=== PATIENT | male | born 1940 | race Hispanic/Latino ===

== ENCOUNTER → 2018-05-06 | Day surgery (SDC) | payer MEDICARE ==
--- NOTE | 2018-05-02 16:16 | Diagnostic Imaging Report ---
EXAMINATION: CHEST 2 VIEWS INDICATION: Preop, foot surgery COMPARISON: None FINDINGS: PA and lateral views TUBES and LINES: Shunt tubing extends across the medial right chest from the lower right neck into the upper abdomen LUNGS: Lungs are well inflated. There is no evidence of pneumonia or pulmonary edema. PLEURA: No pleural effusion or pneumothorax. HEART AND MEDIASTINUM: The heart is top normal in size. BONES AND SOFT TISSUES: No focal osseous lesions. Bridging osteophytes in the lower thoracic spine are suggestive of DISH. There are degenerative changes of the shoulders. Soft tissues are unremarkable. UPPER ABDOMEN: No free air under the diaphragm. IMPRESSION: 1. No acute cardiopulmonary process. 2. Shunt tubing suggestive of ventriculoperitoneal shunt. 3. Bridging osteophytes in the thoracic spine suggestive of DISH. Signed by: Dr. Bushra Wyatt MD on 05/02/2018 4:12 PM
[2018-05-02 16:24] LABS: BASOPHILS # (AUTO) 0.1 (0.0-0.1); BASOPHILS % 0.6 % (0.0-1.0); EOSINOPHILS # (AUTO) 0.4 (0.0-0.4); EOSINOPHILS % 3.4 % (0.0-6.0); HEMATOCRIT 36.2 % (38.2-49.6); HEMOGLOBIN 12.2 g/dL (14.0-18.0); LYMPHOCYTES # (AUTO) 1.6 (1.0-3.2); LYMPHOCYTES % 13.1 % (18.0-39.1); MEAN CORPUSCULAR HEMOGLOBIN 30.1 pg (28-32); MEAN CORPUSCULAR HGB CONC 33.7 g/dL (31-35); MEAN CORPUSCULAR VOLUME 89.4 fL (81-99); MONOCYTES # (AUTO) 0.8 (0.2-0.8); MONOCYTES % 6.7 % (4.4-11.3); NEUTROPHILS # (AUTO) 9.2 (2.1-6.9); NEUTROPHILS % 75.8 % (38.7-80.0); PLATELET COUNT 373 x10e3/uL (140-360); RED BLOOD COUNT 4.05 x10e6/uL (4.3-5.7); RED CELL DISTRIBUTION WIDTH 12.4 % (11.7-14.4)
[2018-05-02 16:41] LABS: ANION GAP 14.8 mmol/L (8-16); CALCIUM 9.4 mg/dL (8.4-10.2); CREATININE, SERUM 1.34 mg/dL (0.72-1.25); POTASSIUM 4.8 mmol/L (3.5-5.1)
[~2018-05-06] MED LIST: ALFUZOSIN HCL10 MG PO; ASPIR 8181 MG PO; BACITRACIN 50,000 UNIT VIAL ONE; BETIMOL5 M1 OP; BUPIVACAINE HCL 0.5% INJ 30 ML VIAL INJ ONE; CEFAZOLIN SOD 1 GM/NS 50ML 50 ML IV ONE; CENTRUM SILVER1 EAC3 PO; CINNAMON500 MG PO; FENTANYL CITRATE/PF 100MCG/2 ML INJ ONE; FINASTERIDE5 MG PO; FISH OIL 1,0001 EAC2 PO; GARLIC1000 MG PO; GLIPIZIDE ER5 MG PO; LEVOTHYROXINE50 MCG PO; LIDOCAINE HCL 2% LOCAL INJ 5 ML SDV VIAL INJ ONE; PLAVIX75 MG PO; PROPOFOL IV EMULSION 10 MG/ML 20 ML VIAL ONE; SUPER B COMPLE1 EACH PO; VIT B12 PO; VIT D3 PO; VIT E PO; ZINC SULFATE220 MG PO; [UNRECOGNIZED DRUG - OTHER] PO
--- OUTSIDE RECORDS SUMMARY | 2018-05-06 08:29 | XMS REPORT ---
[facility] Address Unknown Phone Unavailable Care Team Providers Care Supervisor [employer] Name Role Phone Maria A JORDAN Unavailable Unavailable Payers Payer Name Policy Type Policy Number Effective Date Expiration Date Problems This patient has no known problems. Allergies, Adverse Reactions, Alerts Allergy Name Allergy Type Status Severity Reaction(s) Onset Date Inactive Date Treating Clinician Comments metformin DA Active 2017-05-31 00:00:00 glimepiride DA Active SV 2017-05-31 00:00:00 Medications This patient has no known medications. Results Test Description Test Time Test Comments Text Results Atomic Results Result Comments CHEST 2 VIEWS 2018-05-02 16:11:00 [place] [id number] Patient Name: JENNIFER CUMMINS MR #: [id number] : 1940 Age/Sex: 77/M Req #: [id number] Adm Physician: Ordered by: Maria A JORDAN DPM Report #: [id number] Location: OR Room/Bed: Procedure: [id number] DX/CHEST 2 VIEWS Exam Date: Exam Time: REPORT STATUS: Signed EXAMINATION: CHEST 2 VIEWS INDICATION: Preop, foot surgery COMPARISON: None FINDINGS: PA and lateral views TUBES and LINES: Shunt tubing extends across the medial right chest from the lower right neck into the upper abdomen LUNGS: Lungs are well inflated. There is no evidence of pneumonia or pulmonary edema. PLEURA: No pleural effusion or pneumothorax. HEART AND MEDIASTINUM: The heart is top normal in size. BONES AND SOFT TISSUES: No focal osseous lesions. Bridging osteophytes in the lower thoracic spine are suggestive of DISH. There are degenerative changes of the shoulders. Soft tissues are unremarkable. UPPER ABDOMEN: No free air under the diaphragm. IMPRESSION: 1. No acute cardiopulmonary process. 2. Shunt tubing suggestive of ventriculoperitoneal shunt. 3. Bridging osteophytes in the thoracic spine suggestive of DISH. Signed by: Dr. Jacinto Wyatt MD on 05/02/2018 4:12 PM Dictated By: JACINTO WYATT MD [id number] Transcribed By: ISAURO on 05/02/18 1612 COPY TO: Maria A JORDAN DPM
[2018-05-06 09:56] LABS: INR 0.9
[2018-05-06 10:07] LABS: PARTIAL THROMBOPLASTIN TIME 35.5 seconds (23.8-35.5)
[2018-05-06 12:00] VITALS: BP 133/86
--- NOTE | 2018-06-18 14:41 | Operative Report ---
DATE OF PROCEDURE: May 06, 2018 PREOPERATIVE DIAGNOSES 1. Abscess and cellulitis, right 1st toe. 2. Osteomyelitis, right 1st toe. POSTOPERATIVE DIAGNOSES 1. Abscess and cellulitis, right 1st toe. 2. Osteomyelitis, right 1st toe. OPERATIVE PROCEDURE: Amputation of the right 1st toe and distal one-third of the metatarsal head. The patient was placed on the OR table in the supine position. The right lower extremity was prepped and draped in the usual manner. A general anesthetic was administered and hemostasis accomplished using an Esmarch bandage. An incision was started on the dorsal aspect of the 1st metatarsophalangeal joint. It extended from the distal one-third of the metatarsal to the midshaft of the proximal phalanx. The incision was then lengthened both medially and laterally to [place] under the toe. The soft tissue was then dissected away from the base of the toe. The metatarsophalangeal joint was disarticulated and the toe was removed in total. It was noted that the metatarsal head was also affected. It had the grayish dark color of an infected bone. At this time, utilizing a power saw, the distal one-third of the metatarsal was removed. The remaining shaft was smoothed with a rongeur and also a hand rasp. At this time, the wound was flushed with a Pulsavac with also Bacitracin antibiotic. The dorsal and plantar flaps were then remodeled for closure. The wound was then closed with 3-0 nylon. Following the procedure, 10 mL of 0.5 Marcaine were injected. A sterile compression bandage was applied. At this time, the pneumatic cuff was released and a reflex hyperemia was observed to the remaining digits. Patient tolerated the procedure and anesthesia well, and left the OR to recovery in good condition with vital signs stable. Job#: [id number] RI
== END | disposition home or self-care (01) ==
LOC: OR 08:27
PROVIDERS: ATTEND Podiatrist Foot & Ankle Surgery
DX: M86.171 Other acute osteomyelitis, right ankle and foot (principal); M86.671 Other chronic osteomyelitis, right ankle and foot; L02.611 Cutaneous abscess of right foot; L03.031 Cellulitis of right toe; I70.261 Atherosclerosis of native arteries of extremities with gangrene, right leg; F03.90 Unspecified dementia, unspecified severity, without behavioral disturbance, psychotic disturbance, mood disturbance, and anxiety; H91.90 Unspecified hearing loss, unspecified ear; I49.3 Ventricular premature depolarization; E78.5 Hyperlipidemia, unspecified; E11.9 Type 2 diabetes mellitus without complications; H53.489 Generalized contraction of visual field, unspecified eye; N40.0 Benign prostatic hyperplasia without lower urinary tract symptoms; F17.210 Nicotine dependence, cigarettes, uncomplicated; Z01.810 Encounter for preprocedural cardiovascular examination; Z01.812 Encounter for preprocedural laboratory examination; Z01.818 Encounter for other preprocedural examination; Z88.8 Allergy status to other drugs, medicaments and biological substances; Z79.02 Long term (current) use of antithrombotics/antiplatelets; Z98.2 Presence of cerebrospinal fluid drainage device; Z86.73 Personal history of transient ischemic attack (TIA), and cerebral infarction without residual deficits
CPT/HCPCS: 28810; 36415 ×2; 71046; 80048; 82948; 85025; 85610; 85730; 88305; 88311; 93005; J0690; J2001; J2704; 88304; 88307

== ENCOUNTER 2018-05-10 16:12 | Inpatient (IN) | payer MEDICARE ==
[~2018-05-10] VITALS: Ht 177.8 cm; Wt 84.0 kg
[~2018-05-10 16:12] MED LIST changes: -BACITRACIN 50,000 UNIT VIAL ONE; -BUPIVACAINE HCL 0.5% INJ 30 ML VIAL INJ ONE; -CEFAZOLIN SOD 1 GM/NS 50ML 50 ML IV ONE; -FENTANYL CITRATE/PF 100MCG/2 ML INJ ONE; -LIDOCAINE HCL 2% LOCAL INJ 5 ML SDV VIAL INJ ONE; -PROPOFOL IV EMULSION 10 MG/ML 20 ML VIAL ONE
[2018-05-10 19:51] LABS: BASOPHILS # (AUTO) 0.1 (0.0-0.1); BASOPHILS % 0.3 % (0.0-1.0); EOSINOPHILS % 0.2 % (0.0-6.0); HEMATOCRIT 31.9 % (38.2-49.6); HEMOGLOBIN 10.8 g/dL (14.0-18.0); LYMPHOCYTES # (AUTO) 0.6 (1.0-3.2); LYMPHOCYTES % 3.4 % (18.0-39.1); MEAN CORPUSCULAR HEMOGLOBIN 29.3 pg (28-32); MEAN CORPUSCULAR HGB CONC 33.9 g/dL (31-35); MEAN CORPUSCULAR VOLUME 86.4 fL (81-99); MONOCYTES % 5.9 % (4.4-11.3); NEUTROPHILS # (AUTO) 15.6 (2.1-6.9); NEUTROPHILS % 89.8 % (38.7-80.0); PLATELET COUNT 387 x10e3/uL (140-360); RED BLOOD COUNT 3.69 x10e6/uL (4.3-5.7); RED CELL DISTRIBUTION WIDTH 12.3 % (11.7-14.4)
[2018-05-10 20:00] LABS: INR 1.01; PROTHROMBIN TIME 14.2 seconds (11.9-14.5)
[2018-05-10 20:01] LABS: PARTIAL THROMBOPLASTIN TIME 49.2 seconds (23.8-35.5)
[2018-05-10 20:12] LABS: ANION GAP 13.9 mmol/L (8-16); CREATININE, SERUM 1.49 mg/dL (0.72-1.25); POTASSIUM 4.9 mmol/L (3.5-5.1)
[2018-05-10 20:13] LABS: ALBUMIN 2.2 g/dL (3.5-5.0); ALBUMIN/GLOBULIN RATIO 0.5 (0.8-2.0); CALCIUM 9.1 mg/dL (8.4-10.2)
--- NOTE | 2018-05-10 20:19 | Diagnostic Imaging Report ---
FOOT RIGHT COMPLETE - 3 views HISTORY: Pain COMPARISON: None available. FINDINGS: Status post amputation of the right great toe at level of the distal metatarsal bone. There is soft tissue swelling and emphysema at the stump. Tiny erosive changes at the tip of the first metatarsal stump suspected. Calcaneal enthesophytes. Tibiotalar arthropathy. IMPRESSION: Status post amputation of the right great toe at level of the distal metatarsal bone. There is soft tissue swelling and emphysema at the stump. Tiny erosive changes at the amputated tip of the first metatarsal is suspected. Foot MRI can be obtained for further evaluation. Signed by: Dr. Aramis Foote MD on 05/10/2018 8:16 PM
--- NOTE | 2018-05-10 20:32 | Diagnostic Imaging Report ---
EXAMINATION: CHEST SINGLE (PORTABLE) INDICATION: ^ADMISSION ^[id number] ^1945 COMPARISON: 05/02/2018 FINDINGS: AP view TUBES and LINES: Partially visualized right BROADCAST OPERATIONS DIRECTOR shunt is again seen. LUNGS: Lungs are well inflated. Central peribronchovascular thickening/cuffing. PLEURA: No pleural effusion or pneumothorax. HEART AND MEDIASTINUM: The cardiomediastinal silhouette is unremarkable. BONES AND SOFT TISSUES: No acute osseous lesion. Soft tissues are unremarkable. UPPER ABDOMEN: No free air under the diaphragm. IMPRESSION: Unchanged central peribronchovascular thickening/cuffing. No definite focal consolidation. Signed by: Dr. Aramis Foote MD on 05/10/2018 8:28 PM
[2018-05-10] MEDS ORDERED: DEXTROSE 50% SYRINGE 50 ML IV PRN (21:00)
[2018-05-10] MEDS ORDERED: MORPHINE SULFATE 2 MG/ML SYR 1ML IV PRN (21:00)
[2018-05-10] MEDS ORDERED: MORPHINE SULFATE INJ 4 MG/ML INJ 1ML IV PRN (21:15)
[2018-05-10] MEDS: PIPER-TAZ 3.375 GM 50 ML IV SCH (21:27)
[2018-05-10] MEDS: SODIUM CHLORIDE 0.9% 1000ML 1,000 ML IV SCH (21:27)
[2018-05-10] MEDS: VANCOMYCIN 1GM/NS 250 ML 250 ML IV SCH (22:54)
[2018-05-10] MEDS: INSULIN REGULAR, HUMAN 100 UNIT/1 ML 3ML VIAL SQ SCH (22:55)
--- NOTE | 2018-05-11 | NUR ---
SANDWICH GIVEN TO PT.
[2018-05-11] MEDS: ACETAMINOPHEN 325 MG TAB PO PRN ×2 (00:30→23:49)
--- NOTE | 2018-05-11 02:40 | NUR ---
TRANSFERED PT TO HOSPITAL BED.
[2018-05-11] MEDS: IBUPROFEN 600 MG TAB PO PRN (02:43)
[2018-05-11] MEDS: PIPER-TAZ 3.375 GM 50 ML IV SCH ×3 (06:17→22:00)
[2018-05-11 06:40] LABS: BASOPHILS % 0.3 % (0.0-1.0); EOSINOPHILS % 0.3 % (0.0-6.0); HEMATOCRIT 27.9 % (38.2-49.6); HEMOGLOBIN 9.6 g/dL (14.0-18.0); LYMPHOCYTES # (AUTO) 0.6 (1.0-3.2); LYMPHOCYTES % 5.4 % (18.0-39.1); MEAN CORPUSCULAR HEMOGLOBIN 29.9 pg (28-32); MEAN CORPUSCULAR HGB CONC 34.4 g/dL (31-35); MEAN CORPUSCULAR VOLUME 86.9 fL (81-99); MONOCYTES # (AUTO) 0.7 (0.2-0.8); MONOCYTES % 6.1 % (4.4-11.3); NEUTROPHILS # (AUTO) 10.5 (2.1-6.9); NEUTROPHILS % 87.6 % (38.7-80.0); PLATELET COUNT 305 x10e3/uL (140-360); RED BLOOD COUNT 3.21 x10e6/uL (4.3-5.7); RED CELL DISTRIBUTION WIDTH 12.4 % (11.7-14.4)
--- NOTE | 2018-05-11 07:06 | NUR ---
Walking rounds with MARTITA Friedman day shift nurse.
[2018-05-11 07:07] LABS: ALBUMIN 1.8 g/dL (3.5-5.0); ALBUMIN/GLOBULIN RATIO 0.5 (0.8-2.0); ANION GAP 12.1 mmol/L (8-16); CALCIUM 8.4 mg/dL (8.4-10.2); CREATININE, SERUM 1.52 mg/dL (0.72-1.25); POTASSIUM 4.1 mmol/L (3.5-5.1)
[2018-05-11] MEDS: INSULIN REGULAR, HUMAN 100 UNIT/1 ML 3ML VIAL SQ SCH ×4 (08:05→21:00)
--- NOTE | 2018-05-11 10:05 | NUR ---
Dr. Mcclure rounding at this time.
--- NOTE | 2018-05-11 10:20 | NUR ---
Dr. Mcclure here rounding at this time, requesting for pt to be tx'd to [facility]. States pt was to go to [facility] for admission for IV abx for foot wound & has scheduled cardiac procedure on Sunday with Dr. Sandoval. Pt, family, & MD requesting pt to be transferred at this time.
[2018-05-11] MEDS: SODIUM CHLORIDE 0.9% 1000ML 1,000 ML IV SCH ×2 (10:36→17:51)
[2018-05-11] MEDS: VANCOMYCIN 1GM/NS 250 ML 250 ML IV SCH ×2 (10:36→20:38)
--- NOTE | 2018-05-11 13:04 | NUR ---
Per [facility], [facility] declined transfer at this time d/t saturation.
--- NOTE | 2018-05-11 14:24 | NUR ---
Report is called to Coreen ANDERS
--- NOTE | 2018-05-11 15:02 | History and Physical ---
CHIEF COMPLAINT: Gangrenous toes likely needing amputation. HISTORY OF PRESENT ILLNESS: This is a 77-year-old male with multiple comorbidities of known hypertension and type 2 diabetes who was sent in by permanent waver for further management and care, requiring angiogram and likely amputation and debridement of his foot. While here, the patient was doing well, no other complaints. He is tolerating diet well. Denies any chest pain, palpitations, nausea, vomiting. Patient was seen and evaluated at bedside on the medical floor, currently doing well, no other issues. REVIEW OF SYSTEMS: Pertinent positives: Gangrenous toes due to severe PAD and diabetes mellitus. Pertinent negative: Denies any chest pain, palpitation, nausea, vomiting, diarrhea, dysuria, hematuria, frequency, urgency, lightheadedness, dizziness, abdominal pain, headache, shortness of breath, cough, congestion, fever or any other complaints. The rest of the 14-point review of systems have been reviewed with the patient and are negative. ALLERGIES: TO LOPERAMIDE AND METFORMIN. HOME MEDICATIONS: Aspirin 81 mg daily, Plavix 75 mg daily, finasteride 5 mg daily, glipizide 5 mg t.i.d., levothyroxine 50 mcg daily, zinc ox, zinc sulfate 50 mg daily. PAST MEDICAL HISTORY: Type 2 diabetes, hypertension, peripheral neuropathy, diabetic foot ulcers. SURGICAL HISTORY: Multiple debridement of the diabetic foot ulcers. FAMILY HISTORY: Hypertension and diabetes. SOCIAL HISTORY: No drugs. No alcohol. Does not smoke. Lives with spouse. VITAL SIGNS: Temperature is 98.2, pulse 67, respiratory rate is 18, blood pressure 149/60, pulse ox 98% on room air. LAB FINDINGS: Show white count is 11.9, hemoglobin is 9.6, hematocrit is 28, and platelets are 305. Coagulation: PT 14, INR 1, PTT 49. Chemistries: Sodium 128, potassium is 4.1, bicarb is 19, anion gap of 12, BUN is 29, creatinine is 1.5, glucose was 52 with 112. LFTs are normal. Albumin is 1.8. MICROBIOLOGY: Blood cultures are pending. IMAGING STUDIES: Foot x-ray, status post amputation of the right great toe at the level of the distal metatarsal bone. There is soft tissue swelling and emphysema at the stump. Tiny erosions, changes amputation in the first metatarsal. Chest x-ray otherwise negative. PHYSICAL EXAMINATION GENERAL: Not in acute distress. Alert and oriented x3. Cooperative on examination. HEENT: Head is normocephalic and atraumatic. Eyes: Pupils equal, round and reactive to light bilaterally. Extraocular movements intact bilaterally. NECK: Supple. Good range of motion. Throat with no evidence of any erythema or exudates in the posterior pharynx. Has poor dentition. MUSCULOSKELETAL: Strength is 5/5 throughout. No evidence of any muscle deficit on examination. No weakness appreciated. NEUROLOGICAL: Cranial nerves II through XII grossly intact. No evidence of any neurological deficits on exam. SKIN: Intact. Warm to touch. Good cap refill. PSYCHIATRIC: Normal affect and mood. EXTREMITIES: No edema. Good range of motion throughout. IMPRESSION 1. Right diabetic foot ulcers with gangrene concerning for underlying debridement needed. 2. Severe peripheral arterial disease. 3. Type 2 diabetes. 4. Medically debilitated. 5. Generalized weakness. PLAN: At this time, podiatry and vascular surgery were consulted. Arterial Doppler has been ordered. We will need angiogram of the lower extremities. He is on IV vancomycin and Zosyn. We will get ID consultation as well to evaluate and monitor closely. Resume same home medications with no changes. Lovenox for DVT prophylaxis. Pain control as well. We will likely need debridement or amputation later next week. Job#: [id number] ELINOR
[2018-05-11] MEDS: GLIPIZIDE 5 MG TAB ER PO SCH (17:00)
[2018-05-11] MEDS: ENOXAPARIN SOD INJ 40 MG/0.4 ML SYR SC SCH (17:51)
--- NOTE | 2018-05-11 18:03 | NUR ---
PAINTER HAND reported BP of 204/80 upon getting VS when patient arrived to the floor from the ER. Manual BP taken twice, both readings of 210/90. Notified Dr. Solis, new orders received.
[2018-05-11 18:13] VITALS: BP 204/80
[2018-05-11 18:18] VITALS: BP 204/80
[2018-05-11] MEDS: NIFEDIPINE CR 30 MG TAB PO SCH (18:20)
[2018-05-11] MEDS: HYDRALAZINE HCL 20 MG/ML VIAL IV PRN (18:20)
--- NOTE | 2018-05-11 18:29 | NUR ---
Patient is diaphoretic and is short of breath, he denies any chest pain. Blood sugar is 146. BP 200/80. Paged Dr. Solis, new orders received.
[2018-05-11] MEDS ORDERED: ALBUTEROL/IPRATROPIUM 3 ML NEB NEB PRN (18:45)
[2018-05-11] MEDS ORDERED: FUROSEMIDE INJ 10 MG/ML 4 ML VIAL IV ONE (19:00)
--- NOTE | 2018-05-11 19:25 | NUR ---
Patent received lying in bed. at bedside. AAO x 3. Patient complained about anxiety. Denies SOB or chest pain. Will continue to monitor.
--- NOTE | 2018-05-11 19:45 | NUR ---
Patient complained of anxiety and stated he smokes a pack and a half of cigarettes per day. Dr. Amador Solis notified. New order received.
[2018-05-11 20:00] VITALS: BP 178/68
--- NOTE | 2018-05-11 20:07 | Diagnostic Imaging Report ---
EXAMINATION: CHEST SINGLE (PORTABLE) INDICATION: Shortness of breath. COMPARISON: Chest x-ray 05/10/2018 FINDINGS: AP view TUBES and LINES: Incompletely visualized INSTRUCTIONAL COACH shunt overlying the right neck and chest. LUNGS: Lungs are well inflated. Stable pulmonary venous congestion. No consolidations. PLEURA: No pleural effusion or pneumothorax. HEART AND MEDIASTINUM: Borderline enlargement of cardiac silhouette. BONES AND SOFT TISSUES: No acute osseous lesion. Soft tissues are unremarkable. UPPER ABDOMEN: No free air under the diaphragm. IMPRESSION: Stable pulmonary venous congestion. No consolidations. Signed by: DR. Donavan Raya MD on 05/11/2018 8:04 PM
--- NOTE | 2018-05-11 20:15 | NUR ---
Patient's vital signs re-checked---BP(207/89); HR (107). Dr. Clifton Link notified. New orders received.
[2018-05-11] MEDS ORDERED: LABETALOL HCL 5 MG/ML 20ML VIAL IV PRN (20:30)
[2018-05-11 21:00] VITALS: BP 178/68
[2018-05-11] MEDS: NICOTINE 21 MG/EA PATCH TOP SCH (21:00)
--- NOTE | 2018-05-11 22:30 | NUR ---
Blood specimen sent to lab for BMP.
[2018-05-11] MEDS: ONDANSETRON HCL INJ 2MG/ML 2ML 2 MG/ML VIAL IV PRN (23:00)
[2018-05-11 23:12] LABS: CALCIUM 8.7 mg/dL (8.4-10.2); CREATININE, SERUM 1.54 mg/dL (0.72-1.25)
[2018-05-12] VITALS (7 sets, daily range): BP systolic 130–168; BP diastolic 63–72
[2018-05-12] MEDS: PIPER-TAZ 3.375 GM 50 ML IV SCH ×3 (06:00→22:28)
[2018-05-12] MEDS: LEVOTHYROXINE SODIUM 50 MCG TAB PO SCH (06:00)
--- NOTE | 2018-05-12 07:13 | NUR ---
Shift report given to oncoming nurse. Patient in stable condition.
[2018-05-12] MEDS: INSULIN REGULAR, HUMAN 100 UNIT/1 ML 3ML VIAL SQ SCH ×4 (07:30→21:00)
[2018-05-12] MEDS: FINASTERIDE 5 MG TAB PO SCH (09:00)
[2018-05-12] MEDS ORDERED: ZINC SULFATE 220 MG CAP PO SCH (09:00)
[2018-05-12] MEDS: ASPIRIN 81 MG CHEW TAB PO SCH (09:15)
[2018-05-12] MEDS: CLOPIDOGREL BISULFATE 75 MG TAB PO SCH (09:15)
[2018-05-12] MEDS: VANCOMYCIN 1GM/NS 250 ML 250 ML IV SCH ×2 (09:15→21:43)
[2018-05-12] MEDS: NIFEDIPINE CR 30 MG TAB PO SCH (09:15)
[2018-05-12] MEDS: GLIPIZIDE 5 MG TAB ER PO SCH ×2 (09:15→17:40)
--- NOTE | 2018-05-12 11:56 | Consultation ---
DATE OF CONSULTATION: May 12, 2018 HISTORY OF PRESENTING ILLNESS: This is a 77-year-old male with past medical history of type 2 diabetes, hypertension, peripheral neuropathy, peripheral vascular disease, who recently underwent an angioplasty as well as a right partial first ray amputation within the last week. Patient is well known to the podiatry service. He was seen in the office yesterday with a worsening infection and necrotic gangrenous changes to the amputation site of the right foot. He was sent to see his frame stripper and crusher and be admitted to the hospital for IV antibiotics and possible further angiogram with intervention. The patient had his previous angiogram and amputation at [facility] within the past week and was instructed to be admitted there; however, showed up in the emergency room here, was requested to transfer; however, was denied. Patient and patient's appear frustrated with the situation. Majority of the history was taken from the patient's . He currently denies chest pain. He did have vomiting yesterday related to fever overnight. No other pedal complaints. PAST MEDICAL HISTORY 1. Type 2 diabetes. 2. Peripheral neuropathy. 3. Hypertension. 4. Peripheral vascular disease. ALLERGIES: LOPERAMIDE AND METFORMIN. PAST SURGICAL HISTORY: Right foot partial amputation, left foot partial amputation. FAMILY HISTORY: Hypertension and diabetes. SOCIAL HISTORY: Denies smoking. Denies drinking. Denies any illicit drug usage. PHYSICAL EXAMINATION GENERAL: Not in acute distress, cooperative on examination, alert and oriented x3. VITAL SIGNS: Today temperature 97.8, heart rate 77, respiratory rate 19, blood pressure 168/72, pulse ox 97% on room air. T-max overnight was 101.4. PROBLEM-FOCUSED LOWER EXTREMITY PHYSICAL EXAM VASCULAR: Dorsalis pedis and posterior tibial pulses are nonpalpable. Capillary refill time is delayed to all digits of the right foot. Foot is cool to the touch. Necrotic tissue is noted to the entirety of the amputation site extending proximal to the level of the base of the first metatarsal. NEUROLOGIC: Sensation is absent to light touch bilateral. MUSCULOSKELETAL: Partial first ray amputation to the right foot. Hallux and 2nd digit amputation to the left foot. DERMATOLOGICAL: Necrotic eschar noted to the entirety of the amputation site with a nonhealing wound present. The dehiscence extends proximally to the base of the first metatarsal. Periwound erythema and edema is noted. No active drainage is noted. The wound appears macerated. No bone is exposed at this time. LABS: White blood cell count 11.9 down from 17.3, hemoglobin 9.6, hematocrit 27.9, platelet count 305. Neutrophil percentage is 87.6. Sed rate is 116. Sodium 127, potassium 4.0, chloride 96, CO2 of 20, BUN 26, creatinine 1.54, glucose 164. IMAGING: Three views were taken of the patient's right foot, status post amputation at the right great toe level of distal metatarsal bone. Soft tissue is showing empyema at the stump site, erosive changes at the amputated tip of the first metatarsal is suspected. MICROBIOLOGY: Growth detected. Blood culture, few gram negative bacilli. Culture is pending. ASSESSMENT 1. Status post right foot partial first ray amputation with necrotic wound, dehiscence, and nonhealing wound. 2. Peripheral vascular disease. 3. Type 2 diabetes with peripheral neuropathy. PLAN: Patient was seen and evaluated. Discussed the condition, x-rays, labs with patient in detail. Dry sterile dressing change was performed with Betadine in wet-to-dry fashion. Discussed with patient that a attempt to transfer to [facility] was made; however, was denied. The patient cannot be discharged and cannot have his scheduled angiogram tomorrow as the patient has a positive blood culture. We will recommend consulting in-house cardiology team for further vascular recommendations and intervention if possible. Continue IV antibiotics. Blood culture sensitivities are pending. Discussed with patient at length that the next level of amputation would be a transmetatarsal amputation, but based on the current necrotic wound healing, I am not optimistic about a transmetatarsal wound healing. I also discussed the [id number] amputation with patient in detail. The patient and patient's understand. Podiatry service will continue to monitor him as an inpatient. Job#: [id number] SANDHYA
[2018-05-12] MEDS ORDERED: FUROSEMIDE INJ 10 MG/ML 4 ML VIAL IV ONE (13:00)
[2018-05-12 13:25] LABS: ANION GAP 11.6 mmol/L (8-16); CREATININE, SERUM 1.38 mg/dL (0.72-1.25); POTASSIUM 3.6 mmol/L (3.5-5.1)
--- NOTE | 2018-05-12 13:49 | Progress Note ---
DATE: May 12, 2018 MEDICINE PROGRESS NOTE SUBJECTIVE: Patient decided to go ahead and stay here instead of being transferred to [place]. We will go ahead and consult with appropriate consultants. He is otherwise doing well. Last night, he was short of breath with chest x-ray consistent with pulmonary edema. Lasix was given. Now, he is doing better with no oxygen. He is currently getting a right lower extremity arterial Doppler. OBJECTIVE: VITAL SIGNS: Temperature is 97.8, pulse 77, respiratory rate is 19, blood pressure 168/72. He is satting 97% on room air. GENERAL: In no acute distress. Alert and oriented x3. Cooperative on examination. HEENT: Head is normocephalic, atraumatic. Eyes; pupils equal, round, and reactive to light bilaterally. Extraocular movements intact bilaterally. NECK: Supple with good range of motion. Throat with no evidence of any erythema or exudates in the posterior pharynx. Has poor dentition. PULMONARY: Clear to auscultation bilaterally. No wheezing. No rales. No rhonchi. No crackles appreciated. CARDIOVASCULAR: Positive S1 and S2. No murmurs, rubs, or gallops appreciated. ABDOMEN: Soft, nondistended, nontender to palpation. Bowel sounds present. MUSCULOSKELETAL: Strength is 5/5 throughout. No evidence of any muscle deficit on examination. No weakness appreciated. NEUROLOGICAL: Cranial nerves II through XII grossly intact. No evidence of any neurological deficits on exam. SKIN: Intact. Warm to touch. Good cap refill. PSYCHIATRIC: Normal affect and mood. EXTREMITIES: No edema. Good range of motion throughout. Right foot shows concerning for underlying gangrene. LAB FINDINGS: Show white count of 11.9, hemoglobin 9.6, hematocrit is 27.9, platelets of 305. His sodium 127, potassium 4, chloride 96, bicarb 20, anion gap of 50, BUN 26, creatinine 1.54, glucose is 164, calcium is 8.7. MICROBIOLOGY: Blood culture one of two was positive pending final growth. IMAGING STUDIES: Chest x-ray yesterday showed pulmonary venous congestion is stable, much improved. IMPRESSION 1. Right diabetic foot ulcer with underlying gangrene concerning for amputation needed. 2. Severe peripheral arterial disease. 3. Uncontrolled type 2 diabetes. 4. Medically debilitated. 5. Generalized weakness. 6. Respiratory distress secondary to pulmonary edema, now improved. PLAN: At this time, cardiology has been consulted to perform an angiogram of the right lower extremity. Arterial Doppler has been ordered as well. I discussed this case with podiatry. At this time, he is awaiting for possibly angiogram some time this week to further evaluate and manage. The patient will likely need a BKA as it seems to be very nonhealing in nature. He did develop one of two blood cultures on which I will go ahead and get ID consultation. He is on IV vancomycin and Zosyn for now. We are going to repeat blood cultures x2 as well as labs, CBC, and BMP. He is breathing much better now. I will go ahead and give him some Lasix 40 mg IV x1 again. Continue with Lovenox for DVT prophylaxis. He will likely need debridement sometime next week or possibly amputation. Otherwise, we will also get a BMP right now as well. Job#: [id number]
[2018-05-12] MEDS: ENOXAPARIN SOD INJ 40 MG/0.4 ML SYR SC SCH (17:40)
--- NOTE | 2018-05-12 19:06 | Consultation ---
DATE OF CONSULTATION: May 12, 2018 CARDIOLOGY CONSULTATION REQUESTING PHYSICIAN: Dr. Solis. REASON FOR CONSULTATION: Peripheral arterial disease. HISTORY OF PRESENT ILLNESS: This is a 77-year-old male with history of hypertension, and diabetes mellitus who was sent to the hospital for worsening of his right lower extremity surgical site. The patient was recently admitted at [facility] where he underwent a right partial first ray amputation as well as an angioplasty. He was seen in the stamp pad finisher office the day before admission with worsening infection and necrotic changes to the amputation site. He was instructed to present to the hospital for IV antibiotics and further intervention. However, he inadvertently presented to [facility] instead. Transfer was requested; however, due to lack of bed availability, he was admitted here instead. He was subsequently found to have gram-negative daysi bacteremia for which he has been placed on antibiotic therapy. Cardiology is consulted to evaluate patient's peripheral arterial disease. He denies chest pain, shortness of breath, palpitations. REVIEW OF SYSTEMS: Negative except as per HPI. PAST MEDICAL HISTORY 1. Hypertension. 2. Diabetes mellitus. 3. Peripheral arterial disease with recent angioplasty. PAST SURGICAL HISTORY 1. Right partial first ray amputation. ALLERGIES: PLEASE SEE EMR. MEDICATIONS: Please see medical list. SOCIAL HISTORY: No tobacco, alcohol, or drugs. FAMILY HISTORY: Noncontributory. PHYSICAL EXAMINATION VITAL SIGNS: Temperature 98.1 degrees, pulse 66, respiratory rate 18, blood pressure 158/60, oxygen saturation 95% on room air. GENERAL: No acute distress. Somnolent. HEENT: Normocephalic, atraumatic. Pupils equal. No scleral icterus. NECK: Supple. No thyromegaly or cervical lymphadenopathy. He has a left-sided carotid bruit. LUNGS: Clear to auscultation bilaterally. No wheezes or crackles. CARDIOVASCULAR: Normal rate, regular rhythm. No murmur. ABDOMEN: Soft, nontender. EXTREMITIES: No edema. Dressing noted on the right foot. LABS: WBC 11.93, hemoglobin 9.6, hematocrit 27.9, platelets 305, ESR 116. Sodium 129, potassium 3.6, chloride 99, CO2 of 22, BUN 24, creatinine 1.38. Blood cultures growing gram-negative rods. Chest x-ray, stable pulmonary venous congestion. No consolidations. IMPRESSION 1. 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 2. Severe peripheral arterial disease. 3. Type 2 diabetes mellitus. 4. Hypertension. RECOMMENDATIONS: Antibiotics per primary service. Wound care per podiatry. Arterial Doppler was suggestive of hemodynamically significant stenosis in the right common femoral artery with aortoiliac disease on the left. We will attempt to review the angiogram images from [facility] to determine if he would benefit from repeat angiogram versus proceeding directly to BKA. In the meantime, cardiac Doppler was ordered due to left carotid bruit. We will obtain echocardiogram Continue current cardiac medications including dual-antiplatelet therapy. Thank you for this consult. We will continue to follow. Job#: [id number] CADEN HERRERA
--- NOTE | 2018-05-12 19:20 | NUR ---
Received patient lying in bed. at bedside. Dr Cruz here to see patient. AAO x 3. No acute distress noted. Call light within reach.
[2018-05-12] MEDS: NICOTINE 21 MG/EA PATCH TOP SCH (21:44)
[2018-05-13] VITALS (7 sets, daily range): BP systolic 123–176; BP diastolic 50–93
[2018-05-13 04:41] LABS: BASOPHILS % 0.4 % (0.0-1.0); EOSINOPHILS # (AUTO) 0.1 (0.0-0.4); EOSINOPHILS % 0.5 % (0.0-6.0); LYMPHOCYTES # (AUTO) 0.9 (1.0-3.2); LYMPHOCYTES % 9.6 % (18.0-39.1); MEAN CORPUSCULAR HEMOGLOBIN 29.3 pg (28-32); MEAN CORPUSCULAR HGB CONC 34.4 g/dL (31-35); MEAN CORPUSCULAR VOLUME 85.1 fL (81-99); MONOCYTES # (AUTO) 1.1 (0.2-0.8); MONOCYTES % 11.7 % (4.4-11.3); NEUTROPHILS # (AUTO) 7.2 (2.1-6.9); NEUTROPHILS % 77.4 % (38.7-80.0); PLATELET COUNT 366 x10e3/uL (140-360); RED BLOOD COUNT 3.76 x10e6/uL (4.3-5.7); RED CELL DISTRIBUTION WIDTH 12.5 % (11.7-14.4)
[2018-05-13 05:03] LABS: ANION GAP 11.5 mmol/L (8-16); CREATININE, SERUM 1.35 mg/dL (0.72-1.25); POTASSIUM 3.5 mmol/L (3.5-5.1)
[2018-05-13] MEDS: LEVOTHYROXINE SODIUM 50 MCG TAB PO SCH (06:00)
[2018-05-13] MEDS: PIPER-TAZ 3.375 GM 50 ML IV SCH ×3 (06:30→21:07)
[2018-05-13] MEDS: INSULIN REGULAR, HUMAN 100 UNIT/1 ML 3ML VIAL SQ SCH ×4 (07:30→21:00)
--- NOTE | 2018-05-13 07:41 | NUR ---
Wound dressing done per MD's orders. Patient tolerated well.
--- NOTE | 2018-05-13 08:14 | NUR ---
Patient's vanc trough is reported from lab at 28.2. Awaiting return call from Dr. Bocanegra.
--- NOTE | 2018-05-13 08:56 | Progress Note ---
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 Seen at bedside this morning and appears to be resting comfortably with his . No acute issues overnight. Patient currently denies nausea, vomiting, fever, or chills. Did have some shortness of breath overnight. OBJECTIVE VITAL SIGNS: Today, temperature 96.6, heart rate 74, respiratory rate 18, blood pressure 163/93, pulse ox 96% on room air. LOWER EXTREMITY PHYSICAL EXAMINATION VASCULAR: Dorsalis pedis and posterior tibial pulses are nonpalpable. Capillary refill time is delayed to the digits. Diffuse necrosis is noted in the entirety of the amputation site along the base of the 1st metatarsal. Improvement in periwound erythema is noted. NEUROLOGICAL: Sensation is absent to light touch bilateral. MUSCULOSKELETAL: Partial 1st ray amputation right foot hallux and 2nd digit amputation to the left foot. DERMATOLOGICAL: Macerated necrotic eschar is noted to the entirety of the previous partial 1st ray amputation with nonhealing wound present. Dehiscence is noted to the level of the base of the 1st metatarsal. Periwound erythema has improved. No active drainage is noted. No bone exposure at this time. LABS: White blood cell count is 9.2, hemoglobin 11, hematocrit 32, and platelet count 366,000. Neutrophil percentage is 77.4. Sodium 134, potassium 3.5, chloride 102, CO2 24, BUN 21, creatinine 1.3, glucose is at 62 this morning. MICROBIOLOGY: Growth detected and gram-negative bacilli. Identification and susceptibilities to follow. ASSESSMENT 1. Status post partial 1st ray amputation with necrotic wound dehiscence. 2. Peripheral vascular disease. 3. Type 2 diabetes with peripheral neuropathy. 4. Sepsis. PLAN: The patient was seen and evaluated. Discussed condition, x-rays and labs with the patient in detail. A dry, sterile dressing change was performed with Betadine wet-to-dry. Patient was evaluated by the cardiology team with Dr. Cruz and medical records are being obtain from [place] to determine if an attempt to be re-optimize blood flow would be appropriate versus to proceed with an amputation. Again, discussed amputation in detail with the patient and the patient's . They both understand. Discussed with the patient that the level of the necrotic tissue in the food would not be very far from where the transmetatarsal amputation incision site would be made. Therefore, I am not optimistic about wound healing to the transmetatarsal amputation site and prognosis would be poor. I also discussed below the knee amputation with the patient in detail. They understand. The podiatry service will continue to monitor as an inpatient. Job#: [id number] IRLANDA
[2018-05-13] MEDS: VANCOMYCIN 1GM/NS 250 ML 250 ML IV SCH (09:00)
--- NOTE | 2018-05-13 09:00 | NUR ---
CASE MANAGEMENT INITIAL ASSESSMENT Network Administrator to bedside to discuss plan of care with patient/family. CM/SW role and care transitions discussed. Anticipated discharge plan discussed along with duration of care. CM/SW discussed patients right to make decisions in care. CM/SW work hours given. Patient lives: [place] [address] WITH DARIANA CUMMINS Admit/Transfer: ED POA/Emergency contact: : DARIANA CUMMINS- [phone] Current/Previous Home Health: NONE PCP/Follow-up Care: DR. JOSE HAMM Current/Previous DME: [facility] Other Services: N/A Employment Status: RETIRED Areas of Concerns: NONE AT THIS TIME Referral Needs: SNF Education Needs: DIABETIC EDUCATION IMM/OLSEN given and signed (if applicable): IMM Goal for discharge: DISCHARGE HOME WITH HOME HEALTH CM left business card at the bedside with contact information. Name and number was also written on the patients whiteboard. Patient verbalized understanding of discussion. CM will follow-up with ongoing discharge and transition of care needs. Addendum: 05/20/18 at 1326 by Irina Ji CM PATIENT ON SERVICE WITH [facility].
[2018-05-13] MEDS: GLIPIZIDE 5 MG TAB ER PO SCH ×2 (09:15→17:27)
[2018-05-13] MEDS: ASPIRIN 81 MG CHEW TAB PO SCH (09:15)
[2018-05-13] MEDS: NIFEDIPINE CR 30 MG TAB PO SCH (09:15)
[2018-05-13] MEDS: CLOPIDOGREL BISULFATE 75 MG TAB PO SCH (09:15)
[2018-05-13] MEDS: FINASTERIDE 5 MG TAB PO SCH (09:15)
[2018-05-13] MEDS: ZINC SULFATE 50 MG CAP PO SCH (10:09)
--- NOTE | 2018-05-13 11:34 | Progress Note ---
DATE: May 13, 2018 MEDICINE PROGRESS NOTE SUBJECTIVE: Patient is doing well today with no other complaints. We are waiting for cardiology's final recommendations. They are waiting for an outside angiogram to compare and to further evaluate. Once the angiogram is performed, then it will give the idea of the business director to continue either to do amputation or further debridement. OBJECTIVE VITAL SIGNS: Temperature is 96.4, pulse 89, respiratory rate 20, blood pressure 123/50. Pulse ox 98% on room air. LAB FINDINGS: White count 9.0, hemoglobin 11, hematocrit 32, platelets 366. Chemistry: Sodium 134, potassium 3.5, chloride 102, bicarb 24, anion gap 11, BUN 21, creatinine 1.3. Glucose is 79. Calcium is 9. Vancomycin trough elevated at 28. MICROBIOLOGY: Repeat blood cultures are pending. The previous blood cultures showed positive for an anaerobic gram-negative bacilli. ID is following with sensitivity seen. IMAGING STUDIES: Lower extremity arterial Dopplers are pending. PHYSICAL EXAMINATION GENERAL: Not in acute distress. Alert and oriented x3. Cooperative on examination. HEENT: Head is normocephalic, atraumatic. Eyes: Pupils are equal, round, and reactive to light bilaterally. Extraocular movements intact bilaterally. NECK: Supple with good range of motion. Throat with no evidence of any erythema or exudates in the posterior pharynx. Has poor dentition. PULMONARY: Clear to auscultation bilaterally. No wheezing. No rales. No rhonchi. No crackles appreciated. CARDIOVASCULAR: Positive S1 and S2. No murmurs, rubs, or gallops appreciated. ABDOMEN: Soft, nondistended, nontender to palpation. Bowel sounds present. MUSCULOSKELETAL: Strength is 5/5 throughout. No evidence of any muscle deficit on examination. No weakness appreciated. NEUROLOGIC: Cranial nerves II through XII grossly intact. No evidence of any neurological deficits on exam. SKIN: Intact. Warm to touch. Good cap refill. PSYCHIATRIC: Normal affect and mood. EXTREMITIES: No edema. Good range of motion throughout. IMPRESSION 1. Right diabetic foot ulcer with underlying gangrene concerning for amputation. 2. Severe peripheral arterial disease. 3. Uncontrolled type-2 diabetes. 4. Medically debilitated. 5. Generalized weakness. 6. Respiratory distress secondary to pulmonary edema. PLAN: At this time, we are waiting for cardiology's final recommendations for an angiogram to determine the next plan of care for this patient in order for podiatry to determine if he needs debridement or BKA. We are waiting for an outside facility angiogram results to compare. Continue with IV antibiotics. ID is following closely. Blood cultures were positive, which now ID is evaluating and monitoring very closely. We will continue with the same plan of care. He is on Lovenox for DVT prophylaxis. Labs reviewed and stable. Job#: [id number]
--- NOTE | 2018-05-13 15:53 | Consultation ---
DATE OF CONSULTATION: May 13, 2018 REASON FOR CONSULTATION: Right foot infection, peripheral vascular disease and osteomyelitis. 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 The patient is coming with necrosis of the site of amputation. He probably needs further debridement. I was asked to see him. There is also some redness and swelling. The patient has a history of severe peripheral vascular disease. He is known to have a history of hypertension, diabetes mellitus, type 2, atherosclerotic disease, and peripheral vascular disease. He had several vascular procedures done. They were all done at [place] by aircraft powerplant repairer. He is coming now to Patients and Dr. Ramos was consulted. The workup for that is still in progress. The patient is currently laying in bed comfortably. There is no fever. No chills. The patient has history of severe peripheral vascular disease, diabetes mellitus, hypertension, and asthma as mentioned above. PAST SURGICAL HISTORY: Multiple vascular procedures, angioplasty, debridement, amputation of the right big toe. ALLERGIES: NKA. SOCIAL HISTORY: There is no smoking, drug abuse or alcohol abuse. FAMILY HISTORY: Otherwise unremarkable. LABORATORY DATA: Reviewed. His blood cultures on May 10, 2018, showed Proteus vulgaris, which was sensitive to cefotaxime, ceftazidime, Cipro, and intermediate to Invanz. Sensitive to meropenem. Sensitive to Zosyn. He is currently on Zosyn, Procardia, aspirin, and vancomycin. His white count on admission was 17.3 and came down to 9.26. Sodium 134, potassium 3.5, creatinine 1.35. PHYSICAL EXAMINATION GENERAL: He is currently alert and oriented. Does not seem to be in acute distress. VITALS: Stable. Currently afebrile. HEENT: Normocephalic. NECK: Supple. No JVD. No thyromegaly. CHEST: Clear and bilateral coarse. HEART: S1 and S2. ABDOMEN: Soft. EXTREMITIES: The foot has gangrenous changes noted on the right foot at the site of the amputation. IMPRESSION 1. Right foot infection with gangrene in a patient with severe peripheral vascular disease. 2. Bacteremia: Agree with Zosyn. Will plan on 2 weeks of intravenous Zosyn 3.375 intravenously q.8 h. Agree with vancomycin and follow trough. Probably needs to be adjusted. Will follow trough and adjust. 3. Diabetes. 4. Severe peripheral vascular disease. 5. Elevated vancomycin trough: Will hold and check a level. If less than 20, re-dose of 1 g q.24 h. 6. Chronic kidney disease. 7. Discussed with the . Will follow. Job#: [id number] IRLANDA
[2018-05-13] MEDS: ENOXAPARIN SOD INJ 40 MG/0.4 ML SYR SC SCH (17:27)
[2018-05-13] MEDS: NICOTINE 21 MG/EA PATCH TOP SCH (21:07)
--- NOTE | 2018-05-13 23:37 | Progress Note ---
DATE: May 13, 2018 CARDIOLOGY PROGRESS NOTE SUBJECTIVE: Patient denies chest pain or shortness of breath. OBJECTIVE: VITAL SIGNS: Temperature 97 degrees, pulse 59, respiratory rate 20, blood pressure 152/78, oxygen saturation 99% on room air. GENERAL: Awake and alert, in no acute distress. LUNGS: Clear to auscultation bilaterally. No wheezes or crackles. CARDIOVASCULAR: Normal rate, regular rhythm. No murmur. Normal S1 and S2. ABDOMEN: Soft, nontender. EXTREMITIES: No edema. Dressing noted on the right foot. CARDIAC MEDICATIONS: Nifedipine 60 mg p.o. daily, Plavix 75 mg p.o. daily, aspirin 81 mg p.o. daily, levothyroxine 50 mcg p.o. daily. LABS: WBC 9.26, hemoglobin 11, hematocrit 32, platelets 366,000. Sodium 134, potassium 3.5, chloride 102, CO2 24, BUN 21, creatinine 1.35. Blood cultures growing Proteus vulgaris. IMPRESSION: 1. 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 2. Severe peripheral arterial disease. 3. Diabetes mellitus type 2. 4. Hypertension. RECOMMENDATIONS: Antibiotics per infectious disease. Outside angiogram was reviewed. Patient would benefit from repeat angiogram once his blood cultures are negative. Current cultures from the are without growth thus far. May be able to proceed with angiogram by Sunday. Continue current cardiac medications including dual antiplatelet therapy. Patient's blood pressure remains elevated. We will increase nifedipine. Thank you for this consult. We will continue to follow. Job#: [id number] DR HERRERA
[2018-05-14] VITALS (7 sets, daily range): BP systolic 163–184; BP diastolic 72–80
[2018-05-14] MEDS: LEVOTHYROXINE SODIUM 50 MCG TAB PO SCH (05:12)
[2018-05-14] MEDS: PIPER-TAZ 3.375 GM 50 ML IV SCH ×3 (05:12→21:08)
[2018-05-14] MEDS ORDERED: GLIPIZIDE 5 MG TAB ER PO SCH (08:00)
[2018-05-14] MEDS: INSULIN REGULAR, HUMAN 100 UNIT/1 ML 3ML VIAL SQ SCH ×4 (08:16→21:06)
[2018-05-14] MEDS: ASPIRIN 81 MG CHEW TAB PO SCH (08:16)
[2018-05-14] MEDS: FINASTERIDE 5 MG TAB PO SCH (08:16)
[2018-05-14] MEDS: GLIPIZIDE 5 MG TAB ER PO SCH ×2 (08:16→21:08)
[2018-05-14] MEDS: CLOPIDOGREL BISULFATE 75 MG TAB PO SCH (08:16)
[2018-05-14] MEDS: ZINC SULFATE 50 MG CAP PO SCH (09:00)
[2018-05-14] MEDS: NIFEDIPINE CR 30 MG TAB PO SCH (09:00)
[2018-05-14] MEDS: VANCOMYCIN 1GM/NS 250 ML 250 ML IV SCH (10:25)
--- NOTE | 2018-05-14 11:23 | Progress Note ---
DATE: May 14, 2018 MEDICINE PROGRESS NOTE SUBJECTIVE: Patient is doing well today with no complaints. Waiting for angiogram later this week. OBJECTIVE VITAL SIGNS: Temperature is 97, pulse 70, respiratory rate 18, blood pressure 177/75. Pulse ox 98% on room air. LAB FINDINGS: White count 9.3, hemoglobin 11, hematocrit 32, platelets 266. Chemistries are all normal. MICROBIOLOGY: Repeat blood cultures are found to be no growth to date. IMAGING STUDIES: Carotid ultrasound and arterial Doppler are pending. PHYSICAL EXAMINATION GENERAL: Not in acute distress. Alert and oriented x3. Cooperative on examination. HEENT: Head is normocephalic, atraumatic. Eyes: Pupils are equal, round, and reactive to light bilaterally. Extraocular movements intact bilaterally. NECK: Supple with good range of motion. Throat with no evidence of any erythema or exudates in the posterior pharynx. Has poor dentition. PULMONARY: Clear to auscultation bilaterally. No wheezing. No rales. No rhonchi. No crackles appreciated. CARDIOVASCULAR: Positive S1 and S2. No murmurs, rubs, or gallops appreciated. ABDOMEN: Soft, nondistended, nontender to palpation. Bowel sounds present. MUSCULOSKELETAL: Strength is 5/5 throughout. No evidence of any muscle deficit on examination. No weakness appreciated. NEUROLOGICAL: Cranial nerves II through XII grossly intact. No evidence of any neurological deficits on exam. SKIN: Intact. Warm to touch. Good cap refill. PSYCHIATRIC: Normal affect and mood. EXTREMITIES: No edema. Good range of motion throughout. IMPRESSION 1. Right diabetic foot ulcer with underlying gangrene concerning for amputation. 2. Severe peripheral arterial disease. 3. Uncontrolled type-2 diabetes. 4. Medically debilitated. 5. Generalized weakness. 6. Respiratory distress secondary to pulmonary edema, now resolved. PLAN: At this time, I discussed this case with cardiology. They are waiting for final blood cultures to be negative. They have already reviewed the angiogram that was done at [place]. Sometime later this week, the patient will have a right lower extremity angiogram to determine the need of amputation that the cooler service supervisor is looking for. The patient may need a BKA. Will continue with IV antibiotics. ID is following very closely. Repeat blood cultures are no growth to date. Continue with the same plan of care. PT and OT. Continue with Lovenox for DVT prophylaxis. Job#: [id number] MH
--- NOTE | 2018-05-14 11:39 | Progress Note ---
DATE: May 14, 2018 CARDIOLOGY PROGRESS NOTE SUBJECTIVE: Patient denies chest pain or shortness of breath. OBJECTIVE VITAL SIGNS: Temperature 97 degrees, pulse 78, respiratory rate 20, blood pressure 177/75, oxygen saturation 97% on room air. GENERAL: Awake and alert, in no acute distress. LUNGS: Clear to auscultation bilaterally. No wheezes or crackles. CARDIOVASCULAR: Normal rate, regular rhythm. No murmur. Normal S1 and S2. ABDOMEN: Soft, nontender. EXTREMITIES: No edema. Dressing noted on the right foot. CARDIAC MEDICATIONS 1. Nifedipine 90 mg p.o. daily. 2. Plavix 75 mg p.o. daily. 3. Aspirin 81 mg p.o. daily. 4. Levothyroxine 50 mcg p.o. daily. LABS: None today. Blood cultures are no growth at 24 hours. TELEMETRY: Normal sinus rhythm. IMPRESSIONS 1. 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 2. Severe peripheral arterial disease. 3. Diabetes mellitus, type 2. 4. Hypertension. RECOMMENDATIONS: Antibiotics per infectious disease. Outside angiogram was reviewed. Patient would benefit from repeat angiogram once his blood cultures are negative. We may be able to proceed with angiogram by Sunday or . Continue current cardiac medications. The patient's blood pressure remains elevated. However, he only received his 1st increased dose of nifedipine this morning. We will monitor response. Thank you for this consult. We will continue to follow. Job#: [id number]
--- NOTE | 2018-05-14 15:00 | Progress Note ---
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 The patient was seen at bedside this morning. Appears to be resting comfortably with his . No acute issues overnight. Currently, denies nausea, vomiting, fever, or chills. The shortness of breath appears to be resolving as well. OBJECTIVE VITAL SIGNS: Today, temperature is 97, heart rate 78, respiratory rate 20, blood pressure 177/75. LOWER EXTREMITY PHYSICAL EXAMINATION VASCULAR: Dorsalis pedis and posterior tibial pulses are nonpalpable. Capillary refill time is delayed to the digits. Increasing cyanosis is noted to the 2nd and 3rd digits of the right foot. Diffuse necrosis is noted along the entirety of the amputation site to the base of the 1st metatarsal. There continues to be improvement in the periwound erythema and warmth. NEUROLOGICAL: Sensation is absent to light touch. MUSCULOSKELETAL: Partial 1st ray amputation to the right foot and hallux and 2nd digit amputation to the left foot. DERMATOLOGICAL: Necrotic eschar noted to the entirety of the previous 1st metatarsal amputation with a nonhealing wound present. Dehiscence noted to the level of the base of the 1st metatarsal. Periwound erythema has improved. No active drainage is noted. No bone exposure at this time. LABS: New labs, glucose 150. MICROBIOLOGY: Blood culture from May 10, 2018, Proteus vulgaris. Blood culture from May 12, 2018, no growth after 24 hours. ASSESSMENT 1. Status post partial 1st ray amputation with necrotic wound dehiscence, cellulitis. 2. Peripheral vascular disease. 3. Type 2 diabetes with peripheral neuropathy. PLAN: The patient was seen and evaluated. Discussed condition, x-rays and treatment options with the patient in detail. A dry, sterile dressing change was performed with Betadine wet-to-dry. The patient is currently afebrile with no leukocytosis, and most recent blood cultures are negative. The patient was seen and evaluated by the cardiology team with Dr. Cruz, and records from [place] were reviewed. The plan is to proceed with a repeat angiogram once infection has resolved, possibly later this week. Based on cardiology results and recommendations, will plan on further debridement versus below knee amputation. The patient and the patient's understand. Again, discussed prognosis as part of a transmetatarsal amputation would be guarded. Podiatry service will continue to monitor as an inpatient. Job#: [id number] RI
--- NOTE | 2018-05-14 16:11 | NUR ---
CM DIRECTOR SPOKE WITH DR. NIEVES REGARDING PLAN FOR PATIENT - DISCUSSED BLD CXs FROM 05/12/18 WITH [facility]. HE STATES HE WILL REACH OUT TO DR. TO'S TEAM TO DISCUSS PLAN FOR ANGIOGRAM FOR PATIENT. CM WILL FOLLOW-UP WITH MEDICAL TEAM REGARDING POC. DR. NIEVES STATES THE ANGIO IS NEEDED D/T POSSIBLE NEED FOR AMPUTATION OF FOOT VS. LEG. HE ALSO STATES THE GOAL DC DESTINATION WILL BE SNF (PENDING OUTCOME).
[2018-05-14] MEDS: ENOXAPARIN SOD INJ 40 MG/0.4 ML SYR SC SCH (17:10)
[2018-05-14] MEDS: ONDANSETRON HCL INJ 2MG/ML 2ML 2 MG/ML VIAL IV PRN (19:52)
[2018-05-14] MEDS: NICOTINE 21 MG/EA PATCH TOP SCH (21:08)
[2018-05-15] VITALS (16 sets, daily range): BP systolic 135–217; BP diastolic 60–83
[2018-05-15] MEDS: LEVOTHYROXINE SODIUM 50 MCG TAB PO SCH (05:33)
[2018-05-15] MEDS: PIPER-TAZ 3.375 GM 50 ML IV SCH ×3 (05:33→21:41)
[2018-05-15] MEDS: INSULIN REGULAR, HUMAN 100 UNIT/1 ML 3ML VIAL SQ SCH ×6 (07:30→21:41)
[2018-05-15] MEDS: GLIPIZIDE 5 MG TAB ER PO SCH ×2 (08:00→21:41)
[2018-05-15] MEDS: ZINC SULFATE 50 MG CAP PO SCH (08:16)
[2018-05-15] MEDS: NIFEDIPINE CR 30 MG TAB PO SCH (08:25)
--- NOTE | 2018-05-15 08:54 | Progress Note ---
DATE: May 15, 2018 SUBJECTIVE: A 77-year-old male with a past medical history of type 2 diabetes, peripheral neuropathy, vascular disease, and status post a partial 1st ray amputation, which he was admitted 5 days ago with gangrene and sepsis. Patient was seen at bedside this morning, and relates to high blood pressure overnight. The patient is scheduled for angiogram later today. He has been n.p.o. overnight. No acute issues overnight. Currently, he denies nausea, vomiting, fever, or chills. OBJECTIVE VITAL SIGNS: Today, temperature is 96.6, heart rate is 87, respiratory rate 19, blood pressure 158/71, pulse ox 96% on room air. LOWER EXTREMITY PHYSICAL EXAMINATION VASCULAR: Dorsalis pedis and posterior tibial pulses are nonpalpable. Right foot is cool to the touch. Increasing cyanosis across the forefoot. Diffuse necrosis is noted along the entirety of the amputation site to the base of the 1st metatarsal. There continues to be improvement in the periwound erythema and local acute signs of infection have improved. NEUROLOGICAL: Sensation is absent to light touch. MUSCULOSKELETAL: Partial 1st ray amputation to the right foot hallux and 2nd digit amputation to the left foot. DERMATOLOGICAL: Diffuse necrotic eschar noted to the entirety of previous 1st metatarsal amputation site. Dehiscence to the base of the 1st metatarsal. Local acute signs of infection have improved. No active drainage is noted. No bone exposure is present. LABS: New labs, glucose 104. MICROBIOLOGY: Blood cultures no growth after 48 hours. ASSESSMENT 1. Status post partial first ray amputation with necrotic wound dehiscence, cellulitis and nonhealing wound. 2. Peripheral vascular disease. 3. Type 2 diabetes with peripheral neuropathy. PLAN: Patient was seen and evaluated. Discussed condition and treatment options again with the patient in detail. Dry sterile dressing changes were performed with Betadine wet-to-dry. Patient is currently afebrile with no leukocytosis. Most recent blood cultures are negative after 48 hours. Patient is being taken for angiogram later today to try to optimize blood flow. Again, reiterated to the patient that prognosis is poor with a transmetatarsal amputation. May require a below the knee amputation. Patient and the patient's understand. The podiatry service will continue to monitor as an inpatient. Job#: [id number] RI
--- NOTE | 2018-05-15 10:51 | Progress Note ---
DATE: May 15, 2018 MEDICINE PROGRESS NOTE SUBJECTIVE: Patient is scheduled to have an angiogram later today for further management and care. Patient will likely have some sort of amputation later this week after the angiogram is performed. OBJECTIVE VITAL SIGNS: Temperature is 97.4, pulse 89, respiratory rate is 18, blood pressure is 181/78, pulse ox 95% on room air. GENERAL: Not in acute distress. Alert and oriented times 3. Cooperative on examination. HEENT: Head is normocephalic and atraumatic. Eyes: Pupils equal, round and reactive to light bilaterally. Extraocular movements intact bilaterally. NECK: Supple. Good range of motion. Throat with no evidence of any erythema or exudates in the posterior pharynx. Has poor dentition. PULMONARY: Clear to auscultation bilaterally. No wheezing. No rales. No rhonchi. No crackles appreciated. CARDIOVASCULAR: Positive S1 and S2. No murmurs, rubs or gallops appreciated. ABDOMEN: Soft, nondistended and nontender to palpation. Bowel sounds present. MUSCULOSKELETAL: Strength is 5/5 throughout. No evidence of any muscle deficit on examination. No weakness appreciated. NEUROLOGICAL: Cranial nerves II-XII are grossly intact. No evidence of any neurological deficits on exam. SKIN: Intact. Warm to touch. Good cap refill. PSYCHIATRIC: Normal affect and mood. EXTREMITIES: No edema. Good range of motion throughout. LAB FINDINGS: Show a white count of 9.2, hemoglobin 11, hematocrit is 32, and platelets of 366,000. Coagulation: PT 14, INR 1 and PTT 49. Chemistry: Sodium is normal. Vanc trough is 12. MICROBIOLOGY: Blood cultures repeat were negative. Initial blood culture shows Proteus vulgaris, and currently on antibiotics and being treated accordingly by ID. IMAGING STUDIES: None. IMPRESSION 1. Right diabetic foot ulcer with underlying gangrene, concerning for amputation. 2. Severe peripheral arterial disease. 3. Uncontrolled type 2 diabetes. 4. Marked debility. 5. Generalized weakness. 6. Respiratory distress in the setting of pulmonary edema, now resolved. PLAN: At this time, he is scheduled to have a lower extremity angiogram later today by cardiology. His repeat blood cultures were negative. One of 4 blood cultures were positive for Proteus vulgaris. He is on IV antibiotics. ID is following. We are now waiting for angiogram to determine amputation either below the knee or some other form of amputation. Continue working with PT and OT. Lovenox for DVT prophylaxis. Will continue same plane of care. Job#: [id number] RI
[2018-05-15] MEDS ORDERED: FENTANYL CITRATE/PF 100MCG/2 ML INJ ONE (11:07)
[2018-05-15] MEDS ORDERED: MIDAZOLAM HCL 2 MG/2 ML VIAL ONE (11:07)
[2018-05-15] MEDS ORDERED: HEPARIN SOD/SOD CHLORIDE 2,000 ML ONE (11:08)
[2018-05-15] MEDS ORDERED: SODIUM CHLORIDE 0.9% 1000ML 2,000 ML ONE (11:08)
[2018-05-15] MEDS ORDERED: LIDOCAINE HCL 1% LOCAL INJ 20 ML VIAL ONE (11:08)
[2018-05-15] MEDS ORDERED: VERAPAMIL HCL 2.5 MG/ML 2 ML VIAL ONE (11:09)
[2018-05-15] MEDS ORDERED: IOPAMIDOL 300MG/ML 100 ML INFUS..BTL IV ONE ×2 (11:09→12:08)
--- NOTE | 2018-05-15 11:28 | NUR ---
Patient left the floor to go to laborer high density press for procedure.
--- NOTE | 2018-05-15 11:38 | NUR ---
Inpatient screen completed to determine the need of skilled PT evaluation and treatment. Patient needs assistance for supine to sit and sit <>stand with LLE with RW. Patient will benefit from skilled PT evaluation to address functional impairments.Thank you. Addendum: 05/15/18 at 1140 by Brenden pope PT Amended: Links added.
--- NOTE | 2018-05-15 12:26 | NUR ---
1226 Received pt from cath lab tech to Rec Room #[address] Smalls left groin approach with sheath intact. Identifer x2. Report from cath lab tech nurse Rabia ANDERS ,Fent 25 /Versed 2 given intra procedure and ivs 0.9 NS to lt ac to infuse additional 250 at 50cc/hr .Placed on iv pump.No s/s infiltration. Monitor NSR w/o ectopics. Left sheath groin site intact no bleed or hematoma. No Heparin given for pull once blood pressure stabilized. Baseline orientation achieved. PEERLA. Resp shallow and regular at 98% sat on room air. Abdomen soft and nontender,denies necessity to defecate or urinate. Family was given report by MD in lobby area.Scheduled sheath pull time is 1300pm. With technologist to perform with RN at bedside and [facility] standby.
[2018-05-15] MEDS ORDERED: HYDRALAZINE HCL 20 MG/ML VIAL ONE (12:55)
[2018-05-15] MEDS ORDERED: ATROPINE SULFATE 0.1 MG/ML 10ML SYR ONE (13:09)
--- NOTE | 2018-05-15 13:26 | NUR ---
Received manufacturing laborer recovery report from Keena. Patient is s/p peripheral angiogram.
--- NOTE | 2018-05-15 13:30 | NUR ---
1330 sheath pull completed by health information technologist 20min held site secured w/o bleeding and Doni patch applied to left groin stick site. Dr Smalls spoke with both family members. Potential surgical consult no laborer prestressed concrete fix done. Back to baseline orientation.(Total sedation Fent 25/Versed1) Respiration shallow and regular 99% sat room air . Iv infusing left ac for total additional 250cc NS at 50cchr. BP 180 systolic in laborer prestressed concrete recovery area and Hydralazine given 20 ivp per laborer prestressed concrete nurse Rabia ANDERS. (when bp acceptable sheath pull was started at 1305 and [id number])Report on phone to Darline ANDERS and transfer to floor care with Zoll and RN escort. Report face to face report given at bedside as well and flat time 1730pm ok to eat in Trendelenburg position only.No bleeding at site Family in room with patient on arrival.VS stable denies CP or SOB iv transferred to controller at 50cchr and tel box applied with tele room notified of pt back to room.
--- NOTE | 2018-05-15 13:40 | NUR ---
Patient arrived to the floor awake alert and oriented x 3. Recovery nurse is at the bedside, dressing to left groin site was checked, dressing is dry and intact, no hematoma. Patient's is at the bedside. Education was provided in detail to the patient and his about laying flat until 1730, they verbalized understanding.
--- NOTE | 2018-05-15 16:21 | NUR ---
Nutrition Screen Note RD Recommendation for Physician: - Continue current diet and supplement Plan of Care: RD following, monitoring for tolerance and adequacy Nutrition reason for involvement: LOS Primary Diagnose(s): cellulitis of R foot, gangrene of R foot PMH: PAD, DM Ht: 70 in Wt: 199.3 lb BMI: 28.6 kg/m2 IBW: [address] Assessment: (05/15/18) 77 YOM admitted for R foot ulcer with underling gangrene with PMH of DM2 and PAD. Pt seen today for LOS. Pt s/p angiogram today, sleeping at time of visit. Pt's at bedside reports pt tolerating diet with good po intake, she stakes she is concerned about BG fluctuations. Confirmed appropriate diet and pt currently on glipizide. No GI distress reported. Pt's reports good diet compliance- will continue to monitor for DM diet education needs. Chart reviewed. Labs and meds reviewed. Current Diet: 1800 ADA, 2 packets Beneprotein per day Malnutrition Evaluation (05/15/18) The patient does not meet criteria for a specified degree of malnutrition at this time. Will re-evaluate at follow-up as appropriate. Diet Education Needs Assessment: Diet education not indicated. Nutrition Care Level: Low Signed: Padmini Vail RD, LD, [facility]
[2018-05-15] MEDS: VANCOMYCIN 1GM/NS 250 ML 250 ML IV SCH (16:30)
--- NOTE | 2018-05-15 17:30 | NUR ---
Patient no longer has to lay flat, assisted patient in to wheelchair and to the bathroom, his assisted to clean him up , he had a BM. Left groin site continues to be dry and intact with no hematoma
[2018-05-15] MEDS: FINASTERIDE 5 MG TAB PO SCH (18:03)
[2018-05-15] MEDS: ENOXAPARIN SOD INJ 40 MG/0.4 ML SYR SC SCH (18:03)
[2018-05-15] MEDS: CLOPIDOGREL BISULFATE 75 MG TAB PO SCH (18:03)
[2018-05-15] MEDS: ASPIRIN 81 MG CHEW TAB PO SCH (18:03)
--- NOTE | 2018-05-15 19:15 | NUR ---
PATIENT RECEIVED. PATIENT IS RESTING IN BED, AAOX3. RESP EVEN AND UNLABORED. NO ACUTE DISTRESS NOTED. PATIENT DENIES OF ANY PAIN OR DISCOMFORT AT THIS TIME. RIGHT FOOT DRESSING NOTED, DRY AND INTACT. TELE IN PLACE. FAMILY AT BED SIDE. CALL LIGHT WITHIN REACH. BED LOW/LOCKED. CONTINUE TO MONITOR CLOSELY
[2018-05-15] MEDS: NICOTINE 21 MG/EA PATCH TOP SCH (21:41)
--- NOTE | 2018-05-15 22:42 | Progress Note ---
DATE: May 15, 2018 CARDIOLOGY PROGRESS NOTE SUBJECTIVE: Patient has no complaints. Denies any chest pain, shortness of breath, or leg pain. OBJECTIVE VITAL SIGNS: Temperature 97.8, heart rate is 70, respirations are 18, blood pressure is 138/68, oxygen saturation is 99% on room air. GENERAL: He is a chronically ill-appearing elderly man, lying comfortably in bed. CARDIOVASCULAR: Regular rate and rhythm. LUNGS: Clear to auscultation. ABDOMEN: Soft, nontender. EXTREMITIES: There is a right lower extremity wound which is dressed and wrapped. LABORATORY DATA: Reviewed. CARDIOVASCULAR MEDICATIONS: Reviewed. Peripheral angiography today revealed a patent stent seen in the right superficial femoral artery with mild to moderate nonobstructive disease in the popliteal and tibioperoneal trunk. He has 1 vessel runoff consisting of his peroneal to his lower extremity with only partial filling of his plantar arch via collaterals. Both anterior tibial and posterior tibial are occluded. IMPRESSION 1. Peripheral arterial disease. 2. 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 3. Diabetes mellitus. 4. Hypertension. 5. Hyperlipidemia. RECOMMENDATIONS: Continue antibiotics per infectious disease. His angiogram showed stable results from his [place] images with a patent inflow with patent right superficial femoral artery stents and 1 vessel runoff. Continue current cardiovascular medications. I suspect transmetatarsal amputation will not heal adequately, so patient likely would benefit greater from a right below the knee amputation. Thank you for the consultation. Will continue to follow. Job#: [id number]
[2018-05-16] VITALS (8 sets, daily range): BP systolic 140–182; BP diastolic 69–77
--- NOTE | 2018-05-16 00:05 | Operative Report ---
DATE OF PROCEDURE: May 15, 2018 PROCEDURES PERFORMED: 1. Abdominal aortography. 2. Third order peripheral angiography of the right lower extremity. 3. Conscious sedation of approximately 30 minutes. PREPROCEDURE DIAGNOSIS: Diabetic foot ulcer wound with peripheral arterial disease. POSTPROCEDURE DIAGNOSIS: Diabetic foot ulcer wound with peripheral arterial disease. ESTIMATED BLOOD LOSS: Less than 20 mL. SPECIMENS REMOVED: None. PROCEDURE DETAILS: After informed consent was obtained, the patient was brought to the cardiac catheterization laboratory in a fasting, nonsedated state. Bilateral groins were prepped and draped in usual sterile fashion. Lidocaine 2% was infiltrated over the left anterior groin for local anesthesia. Using micropuncture needle, the left common femoral artery was accessed via modified Seldinger technique, and a 5-Ukrainian sheath was placed. Next, abdominal aortography was performed using Omniflush catheter. Next, this same catheter was taken into the second order position and diagnostic imaging was performed. Next using Advantage wire, a Glidecath was taken into third order position and diagnostic imaging was performed. No interventions were performed. Patient tolerated the procedure well with no immediate complications, transferred back to his room in stable condition. Hemostasis will be achieved via manual pressure. PERIPHERAL FINDINGS: 1. There is a patent stent seen in the right external iliac system with patency of the common femoral and superficial femoral artery previously placed stents. The popliteal extending into the tibioperoneal trunk has mild to moderate 40% to 50% stenosis. The anterior tibial and posterior tibial arteries are occluded with 1-vessel runoff towards the level of the ankle. There is partial filling of the plantar arch. 2. There is a severe 90% left superficial femoral artery stenosis. RECOMMENDATIONS: Patient has patent stents in the external iliac and superficial femoral arteries on the right lower extremity. He has 1-vessel runoff with partial filling of the plantar arch. Patient likely will not benefit from a transmetatarsal amputation likely greater from a ukzwd-coa-[id number] amputation. Job#: [id number]
[2018-05-16 04:51] LABS: BASOPHILS # (AUTO) 0.1 (0.0-0.1); BASOPHILS % 0.6 % (0.0-1.0); EOSINOPHILS # (AUTO) 0.2 (0.0-0.4); EOSINOPHILS % 2.5 % (0.0-6.0); HEMATOCRIT 29.4 % (38.2-49.6); HEMOGLOBIN 9.8 g/dL (14.0-18.0); LYMPHOCYTES # (AUTO) 1.2 (1.0-3.2); MEAN CORPUSCULAR HEMOGLOBIN 28.8 pg (28-32); MEAN CORPUSCULAR HGB CONC 33.3 g/dL (31-35); MEAN CORPUSCULAR VOLUME 86.5 fL (81-99); MONOCYTES # (AUTO) 0.8 (0.2-0.8); MONOCYTES % 8.8 % (4.4-11.3); NEUTROPHILS # (AUTO) 6.9 (2.1-6.9); NEUTROPHILS % 74.5 % (38.7-80.0); PLATELET COUNT 355 x10e3/uL (140-360); RED CELL DISTRIBUTION WIDTH 12.5 % (11.7-14.4)
[2018-05-16 05:08] LABS: ANION GAP 11.6 mmol/L (8-16); CALCIUM 8.7 mg/dL (8.4-10.2); CREATININE, SERUM 1.31 mg/dL (0.72-1.25); POTASSIUM 3.6 mmol/L (3.5-5.1)
[2018-05-16] MEDS: LEVOTHYROXINE SODIUM 50 MCG TAB PO SCH (05:42)
[2018-05-16] MEDS: PIPER-TAZ 3.375 GM 50 ML IV SCH ×3 (05:42→21:24)
[2018-05-16] MEDS: INSULIN REGULAR, HUMAN 100 UNIT/1 ML 3ML VIAL SQ SCH ×4 (07:30→21:00)
[2018-05-16] MEDS: ZINC SULFATE 50 MG CAP PO SCH (09:00)
[2018-05-16] MEDS: FINASTERIDE 5 MG TAB PO SCH (09:09)
[2018-05-16] MEDS: ASPIRIN 81 MG CHEW TAB PO SCH (09:09)
[2018-05-16] MEDS: CLOPIDOGREL BISULFATE 75 MG TAB PO SCH (09:09)
[2018-05-16] MEDS: NIFEDIPINE CR 30 MG TAB PO SCH (09:09)
[2018-05-16] MEDS: GLIPIZIDE 5 MG TAB ER PO SCH ×2 (09:09→21:24)
--- NOTE | 2018-05-16 10:01 | Progress Note ---
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 He was admitted 6 days ago with gangrene and sepsis. He is seen at bedside this morning. No acute issues overnight. Currently denies nausea, vomiting, fever, or chills. OBJECTIVE VITAL SIGNS: Today, temperature 96.2, heart rate 82, respiratory rate 20, blood pressure 174/74, pulse ox 97% on room air. PROBLEM - FOCUSED LOWER EXTREMITY PHYSICAL EXAMINATION VASCULAR: Dorsalis pedis and posterior tibial pulses are nonpalpable. Capillary refill time is delayed to all digits, and there is increasing cyanosis across the foot. The foot is cold to the touch. Diffuse necrosis is noted along the entirety of the amputation site, and local acute signs of infection have been improved. NEUROLOGICAL: Sensation is absent to light touch. MUSCULOSKELETAL: Partial 1st ray amputation to the right foot hallux and 2nd digit amputation to the left foot. DERMATOLOGICAL: Diffuse necrotic eschar to the entirety of the previous amputation site. Dehiscence noted to the base of the 1st metatarsal. Local acute signs of infection have improved. No active drainage noted. No bone exposure is present. LABS: White blood cell count is 9.2, hemoglobin 9.8, hematocrit 29.4, platelet count 355. Neutrophil percentage is 74. Sodium 133, potassium 3.6, chloride 104, CO2 21, BUN 19, creatinine 1.3. Glucose 120. ASSESSMENT 1. 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 2. Peripheral vascular disease. 3. Type-2 diabetes with peripheral neuropathy. PLAN: Patient was seen and evaluated. Discussed condition and treatment options with the patient in detail. Dry sterile dressing change was performed with Betadine wet-to-dry. Patient is currently afebrile with no leukocytosis. Most recent blood cultures show negative after 72 hours. Patient had a peripheral angiogram yesterday, and it relates to 1-vessel runoff with partial filling of the plantar arch. The patient will likely not benefit from a transmetatarsal amputation. I discussed this with the patient and the patient's in detail and recommend that a [id number]-rba-[id number] amputation be performed as, based on the most recent angiogram, the foot is likely nonsalvageable. The patient and the patient's understand. I had a discussion with Dr. Solis and will consult a general surgeon for a ktdkw-glu-ldiq amputation. The podiatry service will continue to monitor as needed. Job#: [id number]
--- NOTE | 2018-05-16 10:40 | Progress Note ---
DATE: May 16, 2018 CARDIOLOGY PROGRESS NOTE SUBJECTIVE: The patient denies chest pain or shortness of breath. OBJECTIVE VITALS: Temperature 96.2 degrees, pulse 82, respiratory rate 20, blood pressure 174/74, oxygen saturation 97%. GENERAL: Awake, alert and in no acute distress. LUNGS: Clear to auscultation bilaterally. No wheezes or crackles. CARDIOVASCULAR: Normal rate. Regular rhythm. No murmur. Normal S1 and S2. ABDOMEN: Soft and nontender. EXTREMITIES: Right lower extremity wound with dressing intact. CARDIAC MEDICATIONS 1. Nifedipine 90 mg p.o. daily. 2. Plavix 75 mg p.o. daily. 3. Aspirin 81 mg p.o. daily. 4. Levothyroxine 50 mcg p.o. daily. 5. Enoxaparin 40 mg subcutaneous daily. LABS: WBC 9.29, hemoglobin 9.8, hematocrit 29.4, and platelets 355,000. Sodium 133, potassium 3.6, chloride 104, CO2 21, BUN 19, creatinine 1.31. Telemetry is normal sinus rhythm. IMPRESSION 1. Peripheral arterial disease. 2. 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 3. Diabetes mellitus. 4. Hypertension. 5. Hyperlipidemia. RECOMMENDATIONS: Antibiotics per infectious disease. Angiogram showed stable results from April with patent SFA stents and 1-vessel runoff to the foot. However, he only had partial filling of his plantar arch via collaterals. The patient is unlikely to heal adequately from a transmetatarsal amputation, and would likely benefit from a right BKA. Continue current cardiac medications. Thank you for this consult. We will continue to follow. Job#: [id number] IRLANDA
[2018-05-16] MEDS: VANCOMYCIN 1GM/NS 250 ML 250 ML IV SCH (12:00)
--- NOTE | 2018-05-16 12:01 | Progress Note ---
DATE: May 16, 2018 MEDICINE PROGRESS NOTE SUBJECTIVE: Patient is doing well today with no complaints. He has angiogram yesterday of the right lower extremity and was advised to have lhkgd-hda-gobf amputation. Patient understands and he is in the process of; "I will go ahead and consult with general surgery". OBJECTIVE VITAL SIGNS: Temperature is 96.2, pulse 82, respiratory rate is 20, blood pressure 174/74, pulse ox 97% on room air. GENERAL: Not in acute distress. Alert and oriented x3. Cooperative on examination. HEENT: Head is normocephalic and atraumatic. Eyes: Pupils equal, round and reactive to light bilaterally. Extraocular movements intact bilaterally. NECK: Supple. Good range of motion. Throat with no evidence of any erythema or exudates in the posterior pharynx. Has poor dentition. PULMONARY: Clear to auscultation bilaterally. No wheezing. No rales. No rhonchi. No crackles appreciated. CARDIOVASCULAR: Positive S1 and S2. No murmurs, rubs, or gallops appreciated. ABDOMEN: Soft, nondistended, and nontender to palpation. Bowel sounds present. MUSCULOSKELETAL: Strength is 5/5 throughout. No evidence of any muscle deficit on examination. No weakness appreciated. NEUROLOGICAL: Cranial nerves II-XII are grossly intact. No evidence of any neurological deficits on exam. SKIN: Intact. Warm to touch. Good cap refill. PSYCHIATRIC: Normal affect and mood. EXTREMITIES: No edema. Good range of motion throughout. LAB FINDINGS: Show white count is 9.3, hemoglobin 9.8, hematocrit is 29, and platelets of 355. Chemistry: Sodium 133, potassium is 3.6, chloride is 104, bicarb 21, anion gap , BUN is 9, creatinine is 1.3. MICROBIOLOGY: One of 4 blood cultures positive for Proteus vulgaris. IMAGING STUDIES: Peripheral angiogram of the lower extremity was performed yesterday on May 15, 2018. IMPRESSION 1. Right diabetic foot ulcer with underlying gangrene, status post right lower extremity angiogram needing right below-knee amputation. 2. Severe peripheral arterial disease. 3. Uncontrolled type 2 diabetes. 4. Marked debility. 5. Generalized weakness. 6. Respiratory distress in the setting of pulmonary edema, now resolved. PLAN: I will go ahead and consult with general surgery, Dr. Wang, needing a right BKA. I discussed this case with Podiatry as well and they agreed with BKA. [facility] is following as well. Patient in this angiogram. Continue with ID following, on IV antibiotics. PT and OT. Lovenox for DVT prophylaxis. He will likely need to be an inpatient rehab versus long term facility after the procedure. Job#: [id number] ELINOR
[2018-05-16] MEDS: ENOXAPARIN SOD INJ 40 MG/0.4 ML SYR SC SCH (17:00)
[2018-05-16] MEDS: HYDRALAZINE HCL 20 MG/ML VIAL IV PRN (17:18)
[2018-05-16] MEDS: NICOTINE 21 MG/EA PATCH TOP SCH (21:24)
[2018-05-16] MEDS: IBUPROFEN 600 MG TAB PO PRN (22:24)
[2018-05-17] VITALS (7 sets, daily range): BP systolic 153–179; BP diastolic 68–78
[2018-05-17 04:34] LABS: BASOPHILS # (AUTO) 0.1 (0.0-0.1); BASOPHILS % 0.7 % (0.0-1.0); EOSINOPHILS # (AUTO) 0.5 (0.0-0.4); EOSINOPHILS % 4.8 % (0.0-6.0); HEMATOCRIT 28.5 % (38.2-49.6); HEMOGLOBIN 9.6 g/dL (14.0-18.0); LYMPHOCYTES # (AUTO) 1.3 (1.0-3.2); LYMPHOCYTES % 12.6 % (18.0-39.1); MEAN CORPUSCULAR HEMOGLOBIN 29.4 pg (28-32); MEAN CORPUSCULAR HGB CONC 33.7 g/dL (31-35); MEAN CORPUSCULAR VOLUME 87.4 fL (81-99); MONOCYTES # (AUTO) 0.8 (0.2-0.8); MONOCYTES % 7.7 % (4.4-11.3); NEUTROPHILS # (AUTO) 7.8 (2.1-6.9); NEUTROPHILS % 73.5 % (38.7-80.0); PLATELET COUNT 352 x10e3/uL (140-360); RED BLOOD COUNT 3.26 x10e6/uL (4.3-5.7); RED CELL DISTRIBUTION WIDTH 12.4 % (11.7-14.4)
[2018-05-17 04:50] LABS: ANION GAP 12.9 mmol/L (8-16); CALCIUM 8.5 mg/dL (8.4-10.2); CREATININE, SERUM 1.24 mg/dL (0.72-1.25); POTASSIUM 3.9 mmol/L (3.5-5.1)
[2018-05-17] MEDS: PIPER-TAZ 3.375 GM 50 ML IV SCH ×2 (05:28→14:55)
[2018-05-17] MEDS: LEVOTHYROXINE SODIUM 50 MCG TAB PO SCH (05:28)
[2018-05-17] MEDS: INSULIN REGULAR, HUMAN 100 UNIT/1 ML 3ML VIAL SQ SCH ×4 (07:30→21:40)
--- NOTE | 2018-05-17 07:55 | Progress Note ---
DATE: May 17, 2018 SUBJECTIVE: This is a 77-year-old male with a past medical history of type 2 diabetes, peripheral neuropathy, vascular disease, who is postop week 1 of right partial 1st ray amputation, and was admitted approximately 1 week ago with gangrene and sepsis. He is seen at bedside this morning with no acute issues overnight. Currently, he denies nausea, vomiting, fever, or chills. OBJECTIVE VITAL SIGNS: Today, temperature is 97.4, heart rate 75, respiratory rate 18, blood pressure 156/68, pulse ox 97% on room air. LOWER EXTREMITY PHYSICAL EXAMINATION VASCULAR: Dorsalis pedis and posterior tibial pulses are nonpalpable. Capillary refill time is delayed to the digits and increasing cyanosis is noted across the entirety of the forefoot. Foot is cool to the touch. NEUROLOGICAL: Sensation is absent to light touch. MUSCULOSKELETAL: Partial 1st ray amputation to the right foot, hallux and 2nd digit amputation to the left foot. DERMATOLOGICAL: Diffuse necrotic eschar to the entirety at the previous amputation site. Dehiscence noted to the base of the 1st metatarsal. Local acute infection have improved, but the wound has largely been unchanged, necrotic and continues to deteriorate. LABS: White blood cell count is 10.6, hemoglobin 9.6, hematocrit 28.5, and platelet count is 352,000. Sodium 137, potassium 3.9, chloride 108, CO2 20, BUN 18, creatinine 1.2, glucose 123. ASSESSMENT 1. 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 2. Peripheral vascular disease. 3. Type 2 diabetes with peripheral neuropathy. PLAN: The patient was seen evaluated. Discussed condition and treatment options with the patient in detail. A dry, sterile dressing change was performed with Betadine wet-to-dry. Patient currently is afebrile with no leukocytosis. Most recent blood cultures continue to be negative after 4 days. The patient had peripheral angiogram 2 days ago and was noted that only one vessel was open to the foot, and would likely not benefit from a transmetatarsal amputation. The patient and the patient's agree with this treatment plan, and are awaiting evaluation for a general surgeon for a below the knee amputation. I discussed this with the patient and Dr. Solis. Podiatry service will be signing off. Please reconsult if necessary. Job#: [id number] RI
--- NOTE | 2018-05-17 08:21 | Progress Note ---
DATE: May 17, 2018 MEDICINE PROGRESS NOTE SUBJECTIVE: Patient is doing well today with no complaints. We had to switch services due to the insurance health plan being [employer]. Now, Dr. Quiles will come and discuss with the family about a right BKA. Otherwise, the patient's pain is well controlled with no other issues. OBJECTIVE VITAL SIGNS: Temperature is 97.4, pulse 75, respiratory rate 18, blood pressure 156/68, pulse ox 97% on room air. LAB FINDINGS: White count is 10.6, hemoglobin 9.6, hematocrit 28.5, platelets 352. PT 14, INR 1, PTT 49. Chemistries: Sodium 137, potassium 3.9, chloride 108, bicarb 20, anion gap 12, BUN 18, creatinine 1.2, glucose 123, calcium 8.5. MICROBIOLOGY: One of 4 positive blood cultures currently being managed by ID. PHYSICAL EXAMINATION GENERAL: Not in acute distress. Alert and oriented x3. Cooperative on examination. HEENT: Head is normocephalic and atraumatic. Eyes: Pupils are equal and reactive to light bilaterally. Extraocular movements intact bilaterally. NECK: Supple. Good range of motion. Throat with no evidence of any erythema or exudates in the posterior pharynx. Has poor dentition. PULMONARY: Clear to auscultation bilaterally. No wheezing. No rales. No rhonchi. No crackles appreciated. CARDIOVASCULAR: Positive S1 and S2. No murmurs, rubs, or gallops appreciated. ABDOMEN: Soft, nondistended, and nontender to palpation. Bowel sounds present. MUSCULOSKELETAL: Strength is 5/5 throughout. No evidence of any muscle deficit on examination. No weakness appreciated. NEUROLOGICAL: Cranial nerves II through XII are grossly intact. No evidence of any neurological deficits on exam. SKIN: Intact. Warm to touch. Good cap refill. PSYCHIATRIC: Normal affect and mood. EXTREMITIES: No edema. Good range of motion throughout. IMPRESSION 1. Right diabetic foot ulcer with underlying gangrene, status post right lower extremity angiogram needing [id number]-[id number]-wwlc amputation. 2. Severe peripheral arterial disease. 3. Uncontrolled type-2 diabetes. 4. Marked medically debilitated. 5. Generalized weakness. 6. Respiratory distress in the setting of pulmonary edema, now resolved. PLAN: We switched consultants for general surgery due to the insurance plan. It will be now Dr. Quiles, who has been consulted and notified. The patient needs a right BKA, which the patient has agreed. Podiatry is following as well. The patient has been cleared by cardiology to proceed with procedure. He is on IV antibiotics due to bacteremia, which ID is following closely. He is receiving PT and OT eval. After his procedure, he will likely benefit from inpatient rehab versus [facility] facility. Job#: [id number] CAM
[2018-05-17] MEDS: NIFEDIPINE CR 30 MG TAB PO SCH (08:36)
[2018-05-17] MEDS: ASPIRIN 81 MG CHEW TAB PO SCH (08:36)
[2018-05-17] MEDS: CLOPIDOGREL BISULFATE 75 MG TAB PO SCH (08:36)
[2018-05-17] MEDS: GLIPIZIDE 5 MG TAB ER PO SCH ×2 (08:36→21:49)
[2018-05-17] MEDS: FINASTERIDE 5 MG TAB PO SCH (08:37)
[2018-05-17] MEDS: ZINC SULFATE 50 MG CAP PO SCH (09:35)
[2018-05-17] MEDS: VANCOMYCIN 1GM/NS 250 ML 250 ML IV SCH (11:55)
--- NOTE | 2018-05-17 12:39 | Progress Note ---
DATE: May 17, 2018 CARDIOLOGY PROGRESS NOTE SUBJECTIVE: The patient denies chest pain or shortness of breath. He is waiting for BKA. OBJECTIVE VITALS: Temperature 96.8 degrees, pulse 73, respiratory rate 18, blood pressure 153/76, oxygen saturation 97% on room air. GENERAL: Awake, alert and in no acute distress. LUNGS: Clear to auscultation bilaterally. No wheezes or crackles. CARDIOVASCULAR: Normal rate. Regular rhythm. No murmur. Normal S1 and S2. ABDOMEN: Soft and nontender. EXTREMITIES: Right lower extremity wound with dressing intact. CARDIAC MEDICATIONS 1. Finasteride 5 mg p.o. daily. 2. Nifedipine 90 mg p.o. daily. 3. Plavix 75 mg p.o. daily. 4. Aspirin 81 mg p.o. daily. 5. Levothyroxine 50 mcg p.o. daily. LABS: WBC 10.65, hemoglobin 9.6, hematocrit 28.5, platelets 352. Sodium 137, potassium 3.9, chloride 108, CO2 20, BUN 18, creatinine 1.24. TELEMETRY: Normal sinus rhythm. IMPRESSION 1. Peripheral arterial disease. 2. 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 3. Diabetes mellitus. 4. Hypertension. 5. Hyperlipidemia. RECOMMENDATIONS: Antibiotics per infectious disease. Angiogram showed stable results from April with patent SFA stent and 1-vessel runoff to the foot. However, the patient only had partial filling of his plantar arch via collaterals. The patient is thus unlikely to heal adequately from a TMA and would likely benefit from a right BKA. Continue current cardiac medications. Monitor blood pressure closely. He is hypertensive. If this continues, we will need to increase nifedipine further. Thank you for this consult. We will continue to follow. Job#: [id number]
--- NOTE | 2018-05-17 12:40 | NUR ---
PT VANCO TROUGH REPORTED TO LEONARD CROW, ORDERS TO GIVE VANCOMYCIN.
[2018-05-17] MEDS: ENOXAPARIN SOD INJ 40 MG/0.4 ML SYR SC SCH (17:23)
--- NOTE | 2018-05-17 18:08 | NUR ---
PT IN BED WITH SPOUSE IN ROOM, DENIES PAIN AND CONTINUE ON IV ANTIBIOTICS.
[2018-05-17] MEDS: NICOTINE 21 MG/EA PATCH TOP SCH (21:49)
[2018-05-18] VITALS (7 sets, daily range): BP systolic 155–198; BP diastolic 67–83
--- NOTE | 2018-05-18 03:27 | NUR ---
pt and at bedside refusing bed alarm, verbally abusive when asking for bed alarm not to be turned on
[2018-05-18] MEDS: HYDRALAZINE HCL 20 MG/ML VIAL IV PRN (05:22)
[2018-05-18] MEDS: LEVOTHYROXINE SODIUM 50 MCG TAB PO SCH (05:22)
[2018-05-18] MEDS: INSULIN REGULAR, HUMAN 100 UNIT/1 ML 3ML VIAL SQ SCH ×4 (07:30→20:27)
[2018-05-18] MEDS: ASPIRIN 81 MG CHEW TAB PO SCH (08:06)
[2018-05-18] MEDS: CLOPIDOGREL BISULFATE 75 MG TAB PO SCH (08:06)
[2018-05-18] MEDS: GLIPIZIDE 5 MG TAB ER PO SCH ×2 (08:06→20:27)
[2018-05-18] MEDS: ZINC SULFATE 50 MG CAP PO SCH (08:07)
[2018-05-18] MEDS: FINASTERIDE 5 MG TAB PO SCH (08:07)
[2018-05-18] MEDS: NIFEDIPINE CR 30 MG TAB PO SCH ×2 (08:07→17:23)
[2018-05-18] MEDS: LABETALOL HCL 20 MG/4 ML SYRINGE IV PRN (11:28)
[2018-05-18] MEDS: VANCOMYCIN 1GM/NS 250 ML 250 ML IV SCH (11:28)
--- NOTE | 2018-05-18 14:14 | Progress Note ---
DATE: May 18, 2018 MEDICINE PROGRESS NOTE SUBJECTIVE: Patient is doing well today with no complaints. General surgery already came and talked with the patient and likely get a BKA soon. No other complaints at this time. VITAL SIGNS: Temperature is 97.2, pulse 74, respiratory rate is 18, blood pressure 176/78, pulse ox 97% on room air. LAB FINDINGS: Show white count 10.6, hemoglobin 9.6, hematocrit is 28, platelets of 352. Coagulations are normal. Chemistry, reviewed and stable. MICROBIOLOGY: One of 4 positive for Proteus vulgaris. PHYSICAL EXAMINATION GENERAL: Not in acute distress. Alert and oriented x3. Cooperative on examination. HEENT: Head is normocephalic and atraumatic. Eyes: Pupils are equal, round, and reactive to light bilaterally. Extraocular movements intact bilaterally. Throat with no evidence of any erythema or exudates in the posterior pharynx. Has poor dentition. NECK: Supple. Good range of motion. PULMONARY: Clear to auscultation bilaterally. No wheezing. No rales. No rhonchi. No crackles appreciated. CARDIOVASCULAR: Positive S1 and S2. No murmurs, rubs, or gallops appreciated. ABDOMEN: Soft, nondistended, nontender to palpation. Bowel sounds present. MUSCULOSKELETAL: Strength is 5/5 throughout. No evidence of any muscle deficit on examination. No weakness appreciated. NEUROLOGICAL: Cranial nerves II through XII are intact. No evidence of any neurological deficits on exam. SKIN: Intact. Warm to touch. Good cap refill. PSYCHIATRIC: Normal affect and mood. EXTREMITIES: No edema. Good range of motion throughout. IMPRESSION 1. 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 2. Severe peripheral arterial disease. 3. Uncontrolled type 2 diabetes. 4. Medically debilitated. 5. Generalized weakness. 6. Respiratory distress in the setting of pulmonary edema, now resolved. 7. Hypertension. PLAN: At this time, general surgery, Dr. Guzman, came and evaluated the patient. He will likely get a right BKA soon in the next 1 to 2 days. His blood pressure is elevated. We will change nifedipine to 60 mg XL twice a day. Podiatry is following also. Patient has been cleared by consultants and will likely need surgery here soon and then overall plan of care is to discharge to rehab versus long term. Job#: [id number] LPA
--- NOTE | 2018-05-18 16:03 | Consultation ---
DATE OF CONSULTATION: May 18, 2018 CHIEF COMPLAINT: Diabetic foot infection. HISTORY OF PRESENT ILLNESS: The patient is a 77-year-old male with history of right big toe amputation for diabetic foot infection, who developed persistent infection at the stump. Angiogram showed SFA patency with only one vessel running off to the foot with only partial filling of plantar arch. Consultation requested for right below-knee amputation. PAST MEDICAL HISTORY: Significant for peripheral vascular disease, diabetes, hypertension, hyperlipidemia. PAST SURGICAL HISTORY: Positive for right big toe amputation, transmetatarsal. ALLERGIES: PATIENT IS ALLERGIC TO METFORMIN AND GLIMEPIRIDE. SOCIAL HABITS: He denies smoking or alcohol abuse. REVIEW OF SYSTEMS: No chest pain. No shortness of breath. PHYSICAL EXAMINATION VITAL SIGNS: Stable. Afebrile. GENERAL: He is awake, alert, in no apparent distress. HEENT: Sclerae anicteric. NECK: Supple. LUNGS: Clear. HEART: Regular rate and rhythm. ABDOMEN: Soft, nontender. EXTREMITIES: No cyanosis or edema. Right foot shows necrotic eschar overlying the 1st metatarsal amputation site. No drainage. Foot is slightly cool to touch. Pedal pulse not palpable. LABORATORY DATA: White cell count 10, hemoglobin was 9.6. Creatinine is 1.2. Albumin 1.8. IMAGING: Foot x-rays show evidence of soft tissue swelling, emphysema at the stump with erosive change in the 1st amputated metatarsal bone. ASSESSMENT: Right diabetic foot infection with possible persistent infection at the metatarsal stump. PLAN: Patient would benefit from right below-knee amputation. Attendant risks of bleeding, infection discussed with patient in detail. Job#: [id number]
--- NOTE | 2018-05-18 16:07 | Progress Note ---
DATE: May 18, 2018 CARDIOLOGY PROGRESS NOTE SUBJECTIVE: No major events overnight. Awaiting his BKA. OBJECTIVE VITAL SIGNS: Temperature 96.8, pulse 73, respiratory rate 18, blood pressure 145/76, satting 97% on room air. GENERAL: Awake, alert, no acute distress. LUNGS: Clear to auscultation bilaterally. CARDIOVASCULAR: Regular rate and rhythm. No murmurs, rubs, or gallops. ABDOMEN: Soft, nontender. NEURO AND PSYCH: Alert and oriented to person, place and time. Normal affect. CARDIOVASCULAR MEDICATIONS: Reviewed. LABORATORY DATA: Reviewed. TELEMETRY DATA: Reviewed. ASSESSMENT 1. Peripheral arterial disease. 2. Right diabetic foot ulcer and underlying gangrene. 3. Diabetes. 4. Hypertension. 5. Hyperlipidemia. RECOMMENDATIONS: Patient has 1-vessel runoff [id number] on the right, but poor plantar arch circulation, hence a BKA is recommended to ensure appropriate wound healing. This is planned for Sunday. Continue current cardiovascular medications, otherwise. Thank you for this consult. We will continue to follow. Job#: [id number] ELINOR
[2018-05-18] MEDS: ENOXAPARIN SOD INJ 40 MG/0.4 ML SYR SC SCH (17:23)
[2018-05-18] MEDS: NICOTINE 21 MG/EA PATCH TOP SCH (20:28)
[2018-05-19] VITALS (8 sets, daily range): BP systolic 164–192; BP diastolic 73–91
[2018-05-19] MEDS: LEVOTHYROXINE SODIUM 50 MCG TAB PO SCH (05:42)
--- NOTE | 2018-05-19 07:02 | NUR ---
received pt lying in bed with eyes open and TV on. Resp even and unlabored. pleasant mood, smiling. at bedside. call light within reach.
[2018-05-19] MEDS: INSULIN REGULAR, HUMAN 100 UNIT/1 ML 3ML VIAL SQ SCH ×4 (07:30→21:22)
[2018-05-19 08:34] LABS: BASOPHILS # (AUTO) 0.1 (0.0-0.1); BASOPHILS % 0.7 % (0.0-1.0); EOSINOPHILS # (AUTO) 0.5 (0.0-0.4); EOSINOPHILS % 3.9 % (0.0-6.0); HEMATOCRIT 31.1 % (38.2-49.6); HEMOGLOBIN 10.6 g/dL (14.0-18.0); LYMPHOCYTES # (AUTO) 1.4 (1.0-3.2); LYMPHOCYTES % 11.7 % (18.0-39.1); MEAN CORPUSCULAR HEMOGLOBIN 29.8 pg (28-32); MEAN CORPUSCULAR HGB CONC 34.1 g/dL (31-35); MEAN CORPUSCULAR VOLUME 87.4 fL (81-99); MONOCYTES # (AUTO) 0.7 (0.2-0.8); MONOCYTES % 5.6 % (4.4-11.3); NEUTROPHILS # (AUTO) 9.3 (2.1-6.9); NEUTROPHILS % 77.4 % (38.7-80.0); PLATELET COUNT 454 x10e3/uL (140-360); RED BLOOD COUNT 3.56 x10e6/uL (4.3-5.7); RED CELL DISTRIBUTION WIDTH 12.5 % (11.7-14.4)
[2018-05-19 08:50] LABS: BLOOD UREA NITROGEN 15 mg/dL (7-26); BUN/CREATININE RATIO 15 (6-25); CALCIUM 9.3 mg/dL (8.4-10.2); CARBON DIOXIDE 22 mmol/L (22-29); CHLORIDE 108 mmol/L (98-107); CREATININE, SERUM 1.03 mg/dL (0.72-1.25); EST GLOMERULAR FILTRATION RATE > 60 ML/MIN (60-); GLUCOSE 111 mg/dL (74-118); SODIUM 138 mmol/L (136-145)
[2018-05-19] MEDS: FINASTERIDE 5 MG TAB PO SCH (09:24)
[2018-05-19] MEDS: NIFEDIPINE CR 30 MG TAB PO SCH ×2 (09:24→17:06)
[2018-05-19] MEDS: GLIPIZIDE 5 MG TAB ER PO SCH ×2 (09:24→21:22)
[2018-05-19] MEDS: ZINC SULFATE 50 MG CAP PO SCH (09:24)
[2018-05-19] MEDS: VANCOMYCIN 1GM/NS 250 ML 250 ML IV SCH (11:16)
--- NOTE | 2018-05-19 14:02 | Progress Note ---
DATE: May 19, 2018 MEDICINE PROGRESS NOTE SUBJECTIVE: Patient is doing well today with no complaints. He is scheduled to have a right BKA tomorrow by General Surgery. VITAL SIGNS: Temperature is 96.6, pulse 87, respiratory rate is 18, blood pressure 169/74, pulse ox 98% on room air. LAB FINDINGS: Show white count 12, hemoglobin 10.2 and hematocrit is 31, platelets of 454. Coagulation; PT 14, INR 1, PTT 49. Chemistries; sodium is 138, potassium is 4, chloride 108, bicarb 20, BUN glucose is 111, calcium is 9.3. MICROBIOLOGY: Blood culture is positive for proteus mirabilis. IMAGING STUDIES: None. PHYSICAL EXAMINATION GENERAL: Not in acute distress, alert and oriented x3. Cooperative on examination. HEENT: Head is normocephalic, atraumatic. Eyes: Pupils equal, round, and reactive to light bilaterally. Extraocular movements intact bilaterally. Throat with no evidence of any erythema or exudates in the posterior pharynx. Has poor dentition. NECK: Supple with good range of motion. PULMONARY: Clear to auscultation bilaterally. No wheezing, no rales, no rhonchi, no crackles appreciated. CARDIOVASCULAR: Positive S1 and S2. No murmurs, rubs, or gallops appreciated. ABDOMEN: Soft, nondistended, nontender to palpation. Bowel sounds present. MUSCULOSKELETAL: Strength is 5/5 throughout. No evidence of any musculoskeletal deficit on examination. No weakness appreciated. NEUROLOGICAL: Cranial nerves II through XII are grossly intact. No evidence of any neurological deficits on exam. SKIN: Intact. Warm to touch. Good cap refill. PSYCHIATRIC: Normal affect and mood. EXTREMITIES: No edema. Good range of motion throughout. IMPRESSION 1. 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 2. Severe peripheral arterial disease. 3. Uncontrolled type 2 diabetes. 4. Medically debilitated. 5. Generalized weakness. 6. Respiratory distress with underlying pulmonary edema, now resolved. PLAN: Patient is scheduled for surgery tomorrow for right BKA. The patient's blood pressure is better controlled and managed right now. Podiatry is following as well. Labs were reviewed and stable. A.m. labs. He would likely benefit from inpatient rehab versus skilled upon surgery. Job#: [id number] SANDHYA
--- NOTE | 2018-05-19 19:00 | NUR ---
Received patient awake, at the bedside.Dressing to the right foot noted, intact. NPO after midnight instructed to patient and , both verbalized understanding. Call light within easy reached, advised to call for assistance when needed. Will continue to monitor
--- NOTE | 2018-05-19 20:00 | NUR ---
Patient and refused bed alarm on, instructed on fall and safety precautions, will continue to monitor
[2018-05-19] MEDS: NICOTINE 21 MG/EA PATCH TOP SCH (21:22)
[2018-05-19] MEDS: LABETALOL HCL 20 MG/4 ML SYRINGE IV PRN (22:20)
[2018-05-20] VITALS (8 sets, daily range): BP systolic 126–172; BP diastolic 58–99
[2018-05-20] MEDS: LEVOTHYROXINE SODIUM 50 MCG TAB PO SCH (05:24)
[2018-05-20] MEDS: INSULIN REGULAR, HUMAN 100 UNIT/1 ML 3ML VIAL SQ SCH ×4 (07:30→21:00)
[2018-05-20] MEDS: ZINC SULFATE 50 MG CAP PO SCH (07:50)
[2018-05-20] MEDS: NIFEDIPINE CR 30 MG TAB PO SCH ×2 (07:50→17:40)
[2018-05-20] MEDS: GLIPIZIDE 5 MG TAB ER PO SCH ×2 (07:50→20:00)
[2018-05-20] MEDS: FINASTERIDE 5 MG TAB PO SCH (07:50)
[2018-05-20] MEDS: LABETALOL HCL 20 MG/4 ML SYRINGE IV PRN (08:10)
--- NOTE | 2018-05-20 09:49 | Progress Note ---
DATE: May 20, 2018 MEDICINE PROGRESS NOTE SUBJECTIVE: Patient is scheduled for right BKA later today. Discussed case with nursing staff. OBJECTIVE VITAL SIGNS: Temperature is 97.2, pulse 79, respiratory rate 18, blood pressure 172/75, pulse ox 100% on room air. GENERAL: Not in acute distress. Alert and oriented times 3. Cooperative on examination. HEENT: Head is normocephalic and atraumatic. Eyes: Pupils equal, round and reactive to light bilaterally. Extraocular movements intact bilaterally. NECK: Supple. Good range of motion. Throat with no evidence of any erythema or exudates in the posterior pharynx. Has poor dentition. PULMONARY: Clear to auscultation bilaterally. No wheezing. No rales. No rhonchi. No crackles appreciated. CARDIOVASCULAR: Positive S1 and S2. No murmurs, rubs or gallops appreciated. ABDOMEN: Soft, nondistended and nontender to palpation. Bowel sounds present. MUSCULOSKELETAL: Strength is 5/5 throughout. No evidence of any muscle deficit on examination. No weakness appreciated. NEUROLOGICAL: Cranial nerves II-XII are grossly intact. No evidence of any neurological deficits on exam. SKIN: Intact. Warm to touch. Good cap refill. PSYCHIATRIC: Normal affect and mood. EXTREMITIES: No edema. Good range of motion throughout. LAB FINDINGS: Show a white count of 12, hemoglobin 10.6, hematocrit 31.1, and platelets of 454,000. Coagulation: PT 14, INR 1 and PTT of 49. Chemistry: Sodium 138, potassium 4, chloride 108, bicarb 22, anion gap of 12, BUN of 16, creatinine is 1, and glucose is 111. Calcium is 9.3. MICROBIOLOGY: One of 4 blood cultures was positive for Proteus vulgaris. IMPRESSION 1. 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 2. Severe peripheral arterial disease. 3. Uncontrolled type 2 diabetes mellitus. 4. Medically debilitated. 5. Generalized weakness. 6. Respiratory distress with underlying pulmonary edema, now resolved. PLAN: He is scheduled for right BKA later today. His vital signs are stable. Labs reviewed and stable. Will continue to follow with the rest of the consultants. Our goal is to either send him to inpatient rehab versus half-way facility for rehabilitation after surgery. Job#: [id number] RI
--- NOTE | 2018-05-20 10:51 | NUR ---
per LEONARD Lechuga with ID, starting cefepime q12hr for "at least 7days" and d/c vancomycin after surgery today.
[2018-05-20] MEDS: CEFEPIME 1GM/NS 0.9% 50 ML 50 ML IV SCH ×2 (10:59→22:00)
[2018-05-20] MEDS: VANCOMYCIN 1GM/NS 250 ML 250 ML IV SCH (11:25)
--- NOTE | 2018-05-20 11:26 | NUR ---
per , surgery is cancelled today and rescheduled for 05/21/18 "around noon''. at bedside and patient notified.
--- NOTE | 2018-05-20 13:26 | NUR ---
IRA SPOKE TO YULISSA ARCE REGARDING PATIENT DISCHARGE PLAN. YAZMIN STATES SHE SPOKE TO PATIENT. PATIENT REFUSED SNF PLACEMENT. PATIENT STATES HE WANTS TO CONTINUE HOME HEALTH SERVICES WITH [facility]. CHOICE LETTER SIGNED AND PLACED IN CHART. CLINICAL SENT TO [phone]. PATIENT TO RESUME HOME HEALTH SERVICES WITH: [facility] (P) [phone] (F) [phone]
--- NOTE | 2018-05-20 14:24 | NUR ---
SPOKE WITH PATIENT AND , THEY STATES THEY WILL NOT GO TO A SNF, SHE STATES WHEN HE HAD HIS BRAIN INJURY THEY WENT HOME WITH [facility] AND LIKED THEIR SERVICES. STATES WOULD LIKE TO GO HOME AND USE THEM AGAIN. SIGNED CHOICE LETTER FOR [facility]. FILED IN CHART GAVE CLINICALS TO CM TO SET UP HOME HEALTH
--- NOTE | 2018-05-20 19:05 | NUR ---
Completed bedside rounds with morning nurse. Pt alert to name, lying in bed 45 degrees. Family at bedside. No distress noted.
[2018-05-20] MEDS: NICOTINE 21 MG/EA PATCH TOP SCH (21:00)
[2018-05-21] VITALS: BP 173/77
--- NOTE | 2018-05-21 00:15 | NUR ---
D/C 20g left AC, pt tolerated well. New IV x1 attempts 20g left FA, flushed with 10ml NS.
[2018-05-21 04:00] VITALS: BP 178/80
[2018-05-21 04:48] LABS: BASOPHILS # (AUTO) 0.1 (0.0-0.1); BASOPHILS % 0.7 % (0.0-1.0); EOSINOPHILS # (AUTO) 0.3 (0.0-0.4); HEMATOCRIT 29.3 % (38.2-49.6); HEMOGLOBIN 9.8 g/dL (14.0-18.0); LYMPHOCYTES # (AUTO) 1.4 (1.0-3.2); LYMPHOCYTES % 12.6 % (18.0-39.1); MEAN CORPUSCULAR HEMOGLOBIN 29.3 pg (28-32); MEAN CORPUSCULAR HGB CONC 33.4 g/dL (31-35); MEAN CORPUSCULAR VOLUME 87.7 fL (81-99); MONOCYTES # (AUTO) 0.8 (0.2-0.8); MONOCYTES % 7.3 % (4.4-11.3); NEUTROPHILS # (AUTO) 8.2 (2.1-6.9); NEUTROPHILS % 75.8 % (38.7-80.0); PLATELET COUNT 407 x10e3/uL (140-360); RED BLOOD COUNT 3.34 x10e6/uL (4.3-5.7); RED CELL DISTRIBUTION WIDTH 12.7 % (11.7-14.4)
[2018-05-21 05:10] LABS: ANION GAP 11.7 mmol/L (8-16); BLOOD UREA NITROGEN 17 mg/dL (7-26); BUN/CREATININE RATIO 15 (6-25); CALCIUM 8.7 mg/dL (8.4-10.2); CARBON DIOXIDE 21 mmol/L (22-29); CHLORIDE 107 mmol/L (98-107); EST GLOMERULAR FILTRATION RATE > 60 ML/MIN (60-); GLUCOSE 81 mg/dL (74-118); POTASSIUM 3.7 mmol/L (3.5-5.1); SODIUM 136 mmol/L (136-145)
[2018-05-21] MEDS: LEVOTHYROXINE SODIUM 50 MCG TAB PO SCH (06:00)
[2018-05-21 07:00] VITALS: BP 157/70
--- NOTE | 2018-05-21 07:07 | NUR ---
pt alert resp even and unlabored at this time, no distress noted at this time, pt able to make needs known, call light in reach.
[2018-05-21] MEDS: INSULIN REGULAR, HUMAN 100 UNIT/1 ML 3ML VIAL SQ SCH ×4 (07:30→21:00)
[2018-05-21] MEDS: GLIPIZIDE 5 MG TAB ER PO SCH ×2 (08:00→22:02)
[2018-05-21] MEDS: CEFEPIME 1GM/NS 0.9% 50 ML 50 ML IV SCH ×2 (08:22→22:02)
[2018-05-21] MEDS: ZINC SULFATE 50 MG CAP PO SCH (09:00)
[2018-05-21] MEDS: NIFEDIPINE CR 30 MG TAB PO SCH ×2 (09:00→22:00)
[2018-05-21] MEDS: FINASTERIDE 5 MG TAB PO SCH (09:00)
[2018-05-21 09:26] VITALS: BP 157/70
--- NOTE | 2018-05-21 10:57 | NUR ---
SPOKE WITH PT AFTER NURSE CALLED TO ME TO ROOM TO CLARIFY LEVELS OF CARE FOR . WAS ABLE TO SIT DOWN WITH HER AND EXPLAIN THE DIFFERENT LEVELS OF CARE. SHE STATES SHE DOESNT WANT TO MAKE A DECISION UNTIL AFTER HIS SURGERY BUT STATES IT MAY BE BETTER TO GO TO A SNF, SHE STATES IF HE GOES SHE WOULD LIKE [facility] WHICH IS BY HER HOME AND WILL SIGN CHOICE TOMORROW IF SHE FEELS HE CANNOT GO HOME.
--- NOTE | 2018-05-21 11:01 | Progress Note ---
DATE: May 21, 2018 MEDICINE PROGRESS NOTE SUBJECTIVE: Patient is doing well today with no complaints. Right BKA was canceled yesterday in which he is scheduled for today for surgery today. Family is upset why it got canceled. I did discuss with her about inpatient rehab, as well as [facility] facility. OBJECTIVE VITAL SIGNS: Temperature is 97.4, pulse 75, respiratory rate 16, blood pressure 170/78, pulse oximetry 95% on room air. GENERAL: Not in acute distress. Alert and oriented times 3. Cooperative on examination. HEENT: Head is normocephalic and atraumatic. Eyes: Pupils equal, round and reactive to light bilaterally. Extraocular movements intact bilaterally. NECK: Supple. Good range of motion. Throat with no evidence of any erythema or exudates in the posterior pharynx. Has poor dentition. PULMONARY: Clear to auscultation bilaterally. No wheezing. No rales. No rhonchi. No crackles appreciated. CARDIOVASCULAR: Positive S1 and S2. No murmurs, rubs or gallops appreciated. ABDOMEN: Soft, nondistended and nontender to palpation. Bowel sounds present. MUSCULOSKELETAL: Strength is 5/5 throughout. No evidence of any muscle deficit on examination. No weakness appreciated. NEUROLOGICAL: Cranial nerves II-XII are grossly intact. No evidence of any neurological deficits on exam. SKIN: Intact. Warm to touch. Good cap refill. PSYCHIATRIC: Normal affect and mood. EXTREMITIES: No edema. Good range of motion throughout. LAB FINDINGS: Show a white count of 10.7, hemoglobin 9.8, hematocrit is 29, and platelets of 407,000. Coagulations are normal. Chemistry: Sodium 133, potassium 3.7, chloride 107, bicarb 21, anion gap of 11, BUN 17, creatinine 1.1, glucose is 81. Calcium is 8.7. IMPRESSION 1. 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 Now, will need a right below knee amputation scheduled for today on May 21, 2018. 2. Severe peripheral arterial disease. 3. Uncontrolled type 2 diabetes. 4. Medically debilitated. 5. Generalized weakness. 6. Respiratory distress with pulmonary edema, now resolved. PLAN: Scheduled for right BKA later today. It was canceled yesterday. I discussed with the family about inpatient rehab versus skilled. They want to go home, but I do not advise that given the patient will need significant amount of training to be able to transfer from bed to wheelchair, wheelchair to bed and so far. Tons of transferring. They seem that they will be able to handle it, which I totally disagree. Will get a.m. labs as well. Also, discussed with the nursing staff and case management. Job#: [id number] FL
--- NOTE | 2018-05-21 12:06 | NUR ---
CM SPOKE TO PATIENT AT BEDSIDE REGARDING DISCHARGE PLAN: CM SPOKE TO PATIENT AT BEDSIDE REGARDING DISCHARGE PLAN. PATIENT UPDATED [facility] THAT PATIENT IS IN HOSPITAL. IF PATIENT DISCHARGES HOME PATIENT HAS WHEELCHAIR, CANE, WALKER, 3-IN-1 COMMODE, AND RAMP. PATIENT DOES NOT HAVE [employer] BY HOUSE SO RAMP ALLOWS STURDY SURFACE FOR WHEELCHAIR. PENDING SURGERY FOR DISCHARGE PLAN: SNF VS HOME HEALTH.
[2018-05-21 12:08] VITALS: BP 151/69
[2018-05-21] MEDS ORDERED: DEXTROSE 5% 1,000 ML IV ONE (13:15)
--- NOTE | 2018-05-21 13:53 | Progress Note ---
DATE: May 21, 2018 CARDIOLOGY PROGRESS NOTE SUBJECTIVE: Patient awaiting right BKA. Reports foot pain. No chest pain or shortness of breath. OBJECTIVE VITAL SIGNS: Temperature is 97.6, heart rate 71, respirations 17, blood pressure is 151/69, oxygen saturation 96% on room air. GENERALLY: A well-appearing elderly man lying comfortably in bed, no apparent distress. CARDIOVASCULAR: Regular rate and rhythm. LUNGS: Clear to auscultation. ABDOMEN: Soft, nontender. EXTREMITIES: Right foot wound wrapped and dressed. CARDIOVASCULAR MEDICATIONS: Reviewed. LABORATORY DATA: Hemoglobin 9.8. Creatinine 1.1. Telemetry monitoring reveals normal sinus rhythm. IMPRESSION 1. Severe peripheral arterial disease with one-vessel runoff to the right lower extremity. 1. 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 2. Diabetes mellitus. 3. Hypertension. 4. Hyperlipidemia. PLAN: Continue current cardiovascular medications and blood pressure control. Patient is scheduled for a right BKA. Patient will need intervention of his left leg at a future date. Will continue to follow along with you. Job#: [id number] EV
--- NOTE | 2018-05-21 14:20 | NUR ---
PT OFF UNIT FOR PROCEDURE.
[2018-05-21] MEDS ORDERED: CEFAZOLIN SOD 2 GM/D5W 50ML 50 ML IV ONE (16:11)
--- NOTE | 2018-05-21 16:23 | NUR ---
Nutrition Intervention Note RD Recommendation for Physician: - Rec ADA diet as medically appropriate - Rec MVi with minerals, vitamin C and zinc sulfate for wound healing - Rec Shiraz BID to support healing after surgery - Rec Glucerna x1 a day to promote protein-calorie intake Plan of Care: RD following, monitoring for tolerance and adequacy, ONS rec Nutrition reason for involvement: Follow up Primary Diagnose(s): cellulitis of R foot, gangrene of R foot PMH: PAD, DM GI: abdomen soft, non-tender, round, LBM 05/21 soft brown stool Skin: R foot gangrene Labs: (05/21) reviewed Meds: dextrose, abx Ht: 70 in Wt: 199.3 lb BMI: 28.6 kg/m2 IBW: [address] Assessment: 05/21/2018- Chart reviewed. Pt was discussed during rounds. BKA is scheduled for this afternoon. Visited pt in the room prior to surgery. Prior to NPO, pt was having fair appetite with ~50-75% meal intake. No GI complains noted. LBM 05/21. No chewing or swallowing difficulty noted. No recent weight loss noted. Educated pt and on the importance of adequate protein-calorie intake for wound healing. All questions have been answered. Will continue to monitor and follow. (05/15/18) 77 YOM admitted for R foot ulcer with underling gangrene with PMH of DM2 and PAD. Pt seen today for LOS. Pt s/p angiogram today, sleeping at time of visit. Pt's at bedside reports pt tolerating diet with good po intake, she stakes she is concerned about BG fluctuations. Confirmed appropriate diet and pt currently on glipizide. No GI distress reported. Pt's reports good diet compliance- will continue to monitor for DM diet education needs. Chart reviewed. Labs and meds reviewed. Current Diet: 1800 ADA Malnutrition Evaluation (05/15/18) The patient does not meet criteria for a specified degree of malnutrition at this time. Will re-evaluate at follow-up as appropriate. Diet Education Needs Assessment: Diet education indicated. Educated pt and on the importance of adequate protein-calorie intake for wound healing. Nutrition Diagnosis: Increased protein needs related to altered skin integrity as evidenced by BKA is planned for today. Goal: Patient will meet 75-100% of estimated needs by follow up Progress: Progressing Interventions: Carbohydrate-modified diet, Commercial beverage, Commercial food, Multivitamin/mineral supplement therapy Monitoring/Evaluation: Total energy intake, Total protein intake, Modified diet, Liquid supplement, Weight change Nutrition Care Level: Low Signed:Niyah Espinoza MS, RD, LD
[2018-05-21] MEDS ORDERED: FENTANYL CITRATE/PF 100MCG/2 ML INJ ONE ×2 (17:14→18:29)
[2018-05-21] MEDS ORDERED: MORPHINE SULFATE INJ 4 MG/ML INJ 1ML IV PRN (18:15)
[2018-05-21] MEDS ORDERED: MEPERIDINE HCL INJ 25 MG/ML VIAL ONE (18:48)
--- NOTE | 2018-05-21 19:00 | NUR ---
PT ARRIVED TO UNIT RESP EVEN AND UNLABORED AT THIS TIME, NO DISTRESS NOTED , PT ON ROOM AIR , NO C/O PAIN WHEN ASKED, PT RIGHT LOWER LEG, IN IN IMMOBILIZER, DRESSING CLEAN DRY AND INTACT. PT AT BEDSIDE. WILL CONT TO MONITOR, CALL LIGHT IN REACH.
--- NOTE | 2018-05-21 19:10 | NUR ---
Completed bedside rounds with morning nurse. Pt alert to name, lying in bed 45 degrees. S/P right BKA. Denies pain at this time. Family at bedside. No distress noted.
--- NOTE | 2018-05-21 19:31 | NUR ---
REPORT GIVEN TO ONCOMING NURSE, FOR CONTINUED CARE.
[2018-05-21 20:00] VITALS: BP 165/73
[2018-05-21] MEDS: NICOTINE 21 MG/EA PATCH TOP SCH (22:02)
[2018-05-22 04:00] VITALS: BP 150/67
[2018-05-22 04:48] LABS: BASOPHILS % 0.2 % (0.0-1.0); HEMOGLOBIN 8.6 g/dL (14.0-18.0); LYMPHOCYTES # (AUTO) 0.8 (1.0-3.2); LYMPHOCYTES % 6.7 % (18.0-39.1); MEAN CORPUSCULAR HEMOGLOBIN 29.4 pg (28-32); MEAN CORPUSCULAR HGB CONC 33.1 g/dL (31-35); MEAN CORPUSCULAR VOLUME 88.7 fL (81-99); MONOCYTES # (AUTO) 0.5 (0.2-0.8); MONOCYTES % 4.2 % (4.4-11.3); NEUTROPHILS # (AUTO) 10.3 (2.1-6.9); NEUTROPHILS % 88.6 % (38.7-80.0); PLATELET COUNT 381 x10e3/uL (140-360); RED BLOOD COUNT 2.93 x10e6/uL (4.3-5.7); RED CELL DISTRIBUTION WIDTH 12.7 % (11.7-14.4)
[2018-05-22 05:06] LABS: ANION GAP 10.5 mmol/L (8-16); BLOOD UREA NITROGEN 18 mg/dL (7-26); BUN/CREATININE RATIO 17 (6-25); CALCIUM 7.7 mg/dL (8.4-10.2); CARBON DIOXIDE 23 mmol/L (22-29); CHLORIDE 106 mmol/L (98-107); CREATININE, SERUM 1.03 mg/dL (0.72-1.25); EST GLOMERULAR FILTRATION RATE > 60 ML/MIN (60-); GLUCOSE 132 mg/dL (74-118); SODIUM 135 mmol/L (136-145)
[2018-05-22 05:13] LABS: POTASSIUM 4.5 mmol/L (3.5-5.1)
[2018-05-22] MEDS: LEVOTHYROXINE SODIUM 50 MCG TAB PO SCH (05:36)
[2018-05-22] MEDS: INSULIN REGULAR, HUMAN 100 UNIT/1 ML 3ML VIAL SQ SCH ×4 (07:30→21:00)
[2018-05-22 07:54] VITALS: BP 164/69
--- NOTE | 2018-05-22 08:28 | Operative Report ---
DATE OF PROCEDURE: May 21, 2018 PREOPERATIVE DIAGNOSIS: Right gangrenous diabetic foot infection. POSTOPERATIVE DIAGNOSIS: Right gangrenous diabetic foot infection. OPERATIVE PROCEDURE: Right below-knee amputation. BUTTON INSPECTOR: None. ANESTHESIA: General, Dr. Banda. INDICATIONS: A 77-year-old male with history of diabetes and diabetic foot infection. Patient underwent partial foot amputation with nonhealing wound with gangrenous change. Peripheral vascular workup showed 1 vessel feeding the foot with questionable viability of the right foot. Therefore, right below-knee amputation recommended. All attendant risks discussed. DESCRIPTION OF PROCEDURE: Patient brought to the OR intubated. The right leg was prepped with alcohol and draped in sterile fashion. A curvilinear incision was made 1 handbreadth below the right tibial tuberosity in a semicircular fashion. Dissection was carried through the skin, fascia down to the tibia. The anterior tibial muscle group was divided with cautery down to the anterior tibial neurovasculature which was then individually ligated with ligature of 2-0 silk. The fibula was also isolated, dividing the lateral muscle group. We then used a Gigli saw to divide the tibia beveling the anterior aspect to remove the bony prominence. Grasper was used to smoothen the edge of the tibia. The fibula was likewise divided 1 cm proximal to the level of the tibial transection using a electric saw. We then proceeded to create the posterior flap tangentially to the plane of the tibia and fibula extending enough distally to create a posterior flap with skin and muscular tissue. The skin incision was made and the right lower leg was removed. Bleeding points were then controlled with suture ligature of 2-0 silk stitch tie. We then irrigated the wound and the posterior tibial neurovasculature was individually ligated with 2-0 silk stitch tie and divided. The posterior tibial nerve was tied under traction and allowed to retract. The perineal neurovasculature was likewise controlled. We then to irrigated the field. Hemostasis achieved. The wound was closed by approximating the fascia anterior to posterior flap using interrupted 2-0 Vicryl. Skin was closed with staple. We then placed Xeroform gauze on the incision and wrapped the stump with 4 x 4 gauze and Kerlix roll. A right knee immobilizer was inserted to maintain straightening of the right knee. At this point, the patient was extubated and transported to the recovery room in guarded condition. Estimated blood loss was 50 mL. Job#: [id number] CF
[2018-05-22 09:14] VITALS: BP 164/69
[2018-05-22] MEDS: GLIPIZIDE 5 MG TAB ER PO SCH ×2 (09:14→21:00)
[2018-05-22] MEDS: ZINC SULFATE 50 MG CAP PO SCH (09:14)
[2018-05-22] MEDS: FINASTERIDE 5 MG TAB PO SCH (09:14)
[2018-05-22] MEDS: NIFEDIPINE CR 30 MG TAB PO SCH ×2 (09:14→17:45)
--- NOTE | 2018-05-22 10:28 | Progress Note ---
DATE: May 22, 2018 MEDICINE PROGRESS NOTE SUBJECTIVE: Patient is doing well with no other issues. Status post right below knee amputation that was performed yesterday on May 21, 2018. Patient is doing well. He is pain free. OBJECTIVE VITAL SIGNS: Temperature 97.4, pulse 74, respirations 18, blood pressure 164/69, pulse ox 98% on room air. GENERAL: Not in acute distress. Alert and oriented times 3. Cooperative on examination. HEENT: Head is normocephalic and atraumatic. Eyes: Pupils equal, round and reactive to light bilaterally. Extraocular movements intact bilaterally. NECK: Supple. Good range of motion. Throat with no evidence of any erythema or exudates in the posterior pharynx. Has poor dentition. PULMONARY: Clear to auscultation bilaterally. No wheezing. No rales. No rhonchi. No crackles appreciated. CARDIOVASCULAR: Positive S1 and S2. No murmurs, rubs or gallops appreciated. ABDOMEN: Soft, nondistended and nontender to palpation. Bowel sounds present. MUSCULOSKELETAL: Strength is 5/5 throughout. No evidence of any muscle deficit on examination. No weakness appreciated. NEUROLOGICAL: Cranial nerves II-XII are grossly intact. No evidence of any neurological deficits on exam. SKIN: Intact. Warm to touch. Good cap refill. PSYCHIATRIC: Normal affect and mood. EXTREMITIES: No edema. Good range of motion throughout. LAB FINDINGS: Show a white count of 7.5, hemoglobin 8.6, hematocrit 26, and platelets of 381,000. Coagulation: PT 14, INR 1 and PTT 49. Chemistry: Sodium 135, potassium 4.5, chloride 106, bicarb 23, anion gap of 10, BUN is 18, creatinine is 1, glucose is 132. MICROBIOLOGY: None. IMAGING STUDIES: None. ASSESSMENT 1. 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 2. Severe peripheral arterial disease. 3. Uncontrolled type 2 diabetes. 4. Medically debilitated. 5. Generalized weakness. 6. Respiratory distress with pulmonary edema. PLAN: At this time, he is status post postop day #1 from a right BKA. He is working with PT and OT. They have already picked a assisted facility. We are going to wait for acceptance. His hemoglobin did drop. We are going to repeat labs in the morning. In the event the hemoglobin continues to drop, we are going to give blood transfusion. Continue with pain control. Work with PT and OT to learn how to transfer. It seems like probably by the end of the week the patient can be transferred out to assisted. I will need to discuss with ID about the antibiotic therapy regimen that they need for this particular bacteremia if indicated. Job#: [id number] IRLANDA
[2018-05-22 11:33] VITALS: BP 158/67
[2018-05-22] MEDS: CEFEPIME 1GM/NS 0.9% 50 ML 50 ML IV SCH ×2 (12:20→22:04)
[2018-05-22 15:58] VITALS: BP 158/66
--- NOTE | 2018-05-22 16:13 | NUR ---
PT SIGNED CHOICE FOR [facility], NEED PT TO DO EVALUATION TO PROCESS REFERRAL.
[2018-05-22] MEDS ORDERED: EPHEDRINE SULFATE INJ 50 MG/10 ML SYR ONE (17:02)
[2018-05-22] MEDS ORDERED: LIDOCAINE HCL 2% LOCAL INJ 5 ML SDV VIAL INJ ONE (17:02)
[2018-05-22] MEDS ORDERED: KETOROLAC TROMETHAMINE 30 MG/ML VIAL ONE (17:02)
[2018-05-22] MEDS ORDERED: ONDANSETRON HCL INJ 2MG/ML 2ML 2 MG/ML VIAL ONE (17:02)
[2018-05-22] MEDS ORDERED: DEXAMETHASONE SOD PHOS INJ 4 MG/ML VIAL ONE (17:02)
[2018-05-22] MEDS ORDERED: SEVOFLURANE INHAL SOLN 250 ML PEN BTL ONE (17:02)
[2018-05-22] MEDS ORDERED: PROPOFOL IV EMULSION 10 MG/ML 20 ML VIAL ONE (17:02)
[2018-05-22] MEDS ORDERED: ACETAMINOPHEN 1000 MG/100 ML IV ONE (17:02)
[2018-05-22 20:00] VITALS: BP 151/67
[2018-05-22] MEDS: NICOTINE 21 MG/EA PATCH TOP SCH (21:00)
[2018-05-22] MEDS: ACETAMINOPHEN/CODEINE 300MG - 30MG TAB PO PRN (23:26)
[2018-05-23] VITALS (7 sets, daily range): BP systolic 121–172; BP diastolic 56–75
[2018-05-23 04:52] LABS: BASOPHILS # (AUTO) 0.1 (0.0-0.1); BASOPHILS % 0.5 % (0.0-1.0); EOSINOPHILS # (AUTO) 0.2 (0.0-0.4); EOSINOPHILS % 2.1 % (0.0-6.0); HEMATOCRIT 26.3 % (38.2-49.6); HEMOGLOBIN 8.7 g/dL (14.0-18.0); LYMPHOCYTES # (AUTO) 1.4 (1.0-3.2); LYMPHOCYTES % 14.2 % (18.0-39.1); MEAN CORPUSCULAR HEMOGLOBIN 29.1 pg (28-32); MEAN CORPUSCULAR HGB CONC 33.1 g/dL (31-35); MONOCYTES # (AUTO) 0.9 (0.2-0.8); MONOCYTES % 8.7 % (4.4-11.3); NEUTROPHILS # (AUTO) 7.5 (2.1-6.9); NEUTROPHILS % 74.1 % (38.7-80.0); PLATELET COUNT 376 x10e3/uL (140-360); RED BLOOD COUNT 2.99 x10e6/uL (4.3-5.7); RED CELL DISTRIBUTION WIDTH 12.8 % (11.7-14.4)
[2018-05-23 05:13] LABS: BLOOD UREA NITROGEN 18 mg/dL (7-26); BUN/CREATININE RATIO 17 (6-25); CALCIUM 8.5 mg/dL (8.4-10.2); CARBON DIOXIDE 23 mmol/L (22-29); CHLORIDE 104 mmol/L (98-107); CREATININE, SERUM 1.03 mg/dL (0.72-1.25); EST GLOMERULAR FILTRATION RATE > 60 ML/MIN (60-); GLUCOSE 98 mg/dL (74-118); SODIUM 133 mmol/L (136-145)
[2018-05-23] MEDS: LEVOTHYROXINE SODIUM 50 MCG TAB PO SCH (06:34)
[2018-05-23] MEDS: INSULIN REGULAR, HUMAN 100 UNIT/1 ML 3ML VIAL SQ SCH ×4 (07:30→21:00)
[2018-05-23] MEDS: NIFEDIPINE CR 30 MG TAB PO SCH ×2 (08:21→17:10)
[2018-05-23] MEDS: FINASTERIDE 5 MG TAB PO SCH (08:21)
[2018-05-23] MEDS: GLIPIZIDE 5 MG TAB ER PO SCH ×2 (08:21→21:25)
[2018-05-23] MEDS: ZINC SULFATE 50 MG CAP PO SCH (08:21)
[2018-05-23] MEDS: CEFEPIME 1GM/NS 0.9% 50 ML 50 ML IV SCH ×2 (11:01→22:20)
--- NOTE | 2018-05-23 11:32 | Progress Note ---
DATE: May 23, 2018 MEDICINE PROGRESS NOTE SUBJECTIVE: Patient is doing well today with no complaints. Working with physical therapy today. Working on jail facility placement. OBJECTIVE VITAL SIGNS: Temperature 96.4, pulse 75, respiratory rate 18, blood pressure 121/73, pulse ox 95% on 2 L nasal cannula. LAB FINDINGS: White count 10.1, hemoglobin 8.7, hematocrit 26, platelets 376. Chemistries: Sodium 133, potassium 4, chloride 104, bicarb 23, anion gap 10, BUN 18, creatinine 1. MICROBIOLOGY: I discussed the blood culture with ID, who felt it was likely to be a contaminant. PHYSICAL EXAMINATION GENERAL: Not in acute distress. Alert and oriented times 3. Cooperative on examination. HEENT: Head is normocephalic and atraumatic. Eyes: Pupils are equal, round and reactive to light bilaterally. Extraocular movements intact bilaterally. NECK: Supple. Good range of motion. Throat with no evidence of any erythema or exudates in the posterior pharynx. Has poor dentition. PULMONARY: Clear to auscultation bilaterally. No wheezing. No rales. No rhonchi. No crackles appreciated. CARDIOVASCULAR: Positive S1 and S2. No murmurs, rubs or gallops appreciated. ABDOMEN: Soft, nondistended and nontender to palpation. Bowel sounds present. MUSCULOSKELETAL: Strength is 5/5 throughout. No evidence of any musculoskeletal deficit on examination. No weakness appreciated. NEUROLOGICAL: Cranial nerves II through XII are grossly intact. No evidence of any neurological deficits on exam. SKIN: Intact. Warm to touch. Good cap refill. PSYCHIATRIC: Normal affect and mood. EXTREMITIES: No edema. Good range of motion throughout. IMPRESSION 1. 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 2. Severe peripheral arterial disease. 3. Uncontrolled type-2 diabetes. 4. Medically debilitated. 5. Generalized weakness. 6. Respiratory distress with underlying pulmonary edema, resolved. 7. Bacteremia. PLAN: At this time, continue with postop care. His hemoglobin is stable. He is working with PT and OT for transfers. Working on jail facility placement. We will repeat labs in the morning. In relation to his bacteremia, I discussed this with ID. According to their chart and their notes, they recommend 2 weeks of oral Cipro. The patient will be discharged to jail with that particular regimen. At this time, he is likely to be discharged here in the next 1 to 2 days. Job#: [id number] CAM
[2018-05-23] MEDS: ACETAMINOPHEN/CODEINE 300MG - 30MG TAB PO PRN ×2 (11:53→21:25)
[2018-05-23] MEDS ORDERED: ENOXAPARIN SOD INJ 40 MG/0.4 ML SYR SC SCH (17:00)
[2018-05-23] MEDS: NICOTINE 21 MG/EA PATCH TOP SCH (21:00)
[2018-05-24] VITALS: BP 140/63
[2018-05-24 04:00] VITALS: BP 169/70
[2018-05-24 04:49] LABS: BASOPHILS # (AUTO) 0.1 (0.0-0.1); BASOPHILS % 0.8 % (0.0-1.0); EOSINOPHILS # (AUTO) 0.3 (0.0-0.4); EOSINOPHILS % 3.1 % (0.0-6.0); HEMATOCRIT 27.3 % (38.2-49.6); HEMOGLOBIN 9.1 g/dL (14.0-18.0); LYMPHOCYTES # (AUTO) 1.4 (1.0-3.2); LYMPHOCYTES % 14.2 % (18.0-39.1); MEAN CORPUSCULAR HEMOGLOBIN 29.2 pg (28-32); MEAN CORPUSCULAR HGB CONC 33.3 g/dL (31-35); MEAN CORPUSCULAR VOLUME 87.5 fL (81-99); MONOCYTES # (AUTO) 0.7 (0.2-0.8); MONOCYTES % 7.2 % (4.4-11.3); NEUTROPHILS # (AUTO) 7.3 (2.1-6.9); NEUTROPHILS % 74.2 % (38.7-80.0); PLATELET COUNT 393 x10e3/uL (140-360); RED BLOOD COUNT 3.12 x10e6/uL (4.3-5.7); RED CELL DISTRIBUTION WIDTH 12.6 % (11.7-14.4)
[2018-05-24 05:08] LABS: ANION GAP 11.1 mmol/L (8-16); BLOOD UREA NITROGEN 17 mg/dL (7-26); BUN/CREATININE RATIO 18 (6-25); CALCIUM 8.9 mg/dL (8.4-10.2); CARBON DIOXIDE 25 mmol/L (22-29); CHLORIDE 105 mmol/L (98-107); CREATININE, SERUM 0.97 mg/dL (0.72-1.25); EST GLOMERULAR FILTRATION RATE > 60 ML/MIN (60-); POTASSIUM 4.1 mmol/L (3.5-5.1); SODIUM 137 mmol/L (136-145)
[2018-05-24 05:14] LABS: GLUCOSE 56 mg/dL (74-118)
--- NOTE | 2018-05-24 05:37 | NUR ---
lab called with glucose 56, rechecked glucose at bedside 67 reading, patient asymptomatic and awake. Gave patient 240ml of orange juice, will recheck blood glucose in 30 min.
[2018-05-24] MEDS: LEVOTHYROXINE SODIUM 50 MCG TAB PO SCH (05:38)
--- NOTE | 2018-05-24 07:02 | NUR ---
Received patient mid fowlers position, side rails upx2, call light within reach, at bedside. AAOX3 to time, person, place. Respirations even and unlabored. Dressing to right TMA clean, dry, and intact. Instructed patient to use call light for assistance. Voiced understanding. Will continue to monitor.
[2018-05-24] MEDS: INSULIN REGULAR, HUMAN 100 UNIT/1 ML 3ML VIAL SQ SCH ×2 (07:30→12:17)
[2018-05-24 08:04] VITALS: BP 145/82
--- NOTE | 2018-05-24 08:34 | NUR ---
SPOKE WITH FAMILY ABOUT ACCEPTANCE OF SNF GOING TO [facility], FILLED OUT PASRR, IMM SIGNED AND RTF COMPLETED FILED IN CHART AND PUT AT NURSES STATION APPROPRIATELY.
[2018-05-24] MEDS: NIFEDIPINE CR 30 MG TAB PO SCH (08:39)
[2018-05-24] MEDS: GLIPIZIDE 5 MG TAB ER PO SCH (08:39)
[2018-05-24] MEDS: FINASTERIDE 5 MG TAB PO SCH (08:39)
[2018-05-24] MEDS: ZINC SULFATE 50 MG CAP PO SCH (08:39)
[2018-05-24 08:45] VITALS: BP 145/65
[2018-05-24] MEDS: ACETAMINOPHEN/CODEINE 300MG - 30MG TAB PO PRN (08:45)
--- NOTE | 2018-05-24 11:01 | NUR ---
aware of transfer. See orders
--- NOTE | 2018-05-24 11:15 | NUR ---
Report called to adal briseno and given to amauri ASHER of patient's status
[2018-05-24 11:35] VITALS: BP 153/66
--- NOTE | 2018-05-24 12:25 | NUR ---
Left FA IV discontinued. No signs of infiltration noted. 2x2 gauze and tape placed. Taken via stretcher. AAOX3 to time, person, place. Respirations even and unlabored. Dressing to Right BKA clean, dry, and intact. All personal belongings taken with . Transfer package and rx given to [facility].
--- NOTE | 2018-05-24 14:16 | Discharge Summary ---
FINAL DISCHARGE DIAGNOSES 1. 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 2. Severe peripheral arterial disease. 3. Uncontrolled type 2 diabetes. 4. Medically debilitated. 5. Generalized weakness. 6. Respiratory distress secondary to pulmonary edema, resolved. 7. Bacteremia likely to be contaminant per Infectious Disease's note. CONSULTANTS: We had Infectious Disease, Orthopedics, General Surgery, Cardiology, Podiatry. VITAL SIGNS: Temperature is 97.2, pulse 71, respiratory rate is 20, blood pressure 145/65, pulse ox 96% on room air. LAB FINDINGS: Show white count 9.8, hemoglobin 9.1, hematocrit is 27, platelets of 393. COAGULATION: PT 14, INR 1, PTT 49.2. CHEMISTRY: Sodium 137, potassium is 4.1, chloride 105, bicarb 25, anion gap of 11, BUN 17, creatinine is 0.97, glucose is 108, calcium is 8.9. LFTs were normal. MICROBIOLOGY: One of four showed positive blood cultures of Proteus mirabilis likely to be contaminant, which I discussed with ID. IMAGING STUDIES: Foot x-ray shows soft-tissue swelling and emphysema in the stump. Tiny erosive changes in the amputation tip of the 1st metatarsal is suspected. Chest x-ray was negative. Carotid ultrasound was found to be negative. Arterial Doppler shows some evidence of arterial stenosis. Patient underwent a peripheral angiogram by Cardiology. HOSPITAL COURSE: A 77-year-old male who came in with worsening right lower extremity foot gangrene. Medical Office Receptionist Assistant sent the patient from his office for further management and care. Podiatry and Cardiology were consulted. Patient underwent a lower extremity angiogram. Due to the severe PAD, it was recommended the patient will need a right BKA. General Surgery was consulted. Patient underwent right [id number] amputation on May 21, 2018. The patient worked with PT and OT while here in the hospital. ID was consulted as well, and the patient was on IV antibiotics. The patient will be discharged on two weeks of oral Cipro according to ID's note. Patient was cleared by Podiatry, General Surgery, ID and Cardiology for discharge to a fdc facility. On discharge patient was doing well with no other complaints. He was back to normal baseline prior to being discharged to a fdc facility. On the day of discharge, vital signs stable, labs reviewed and stable. Patient seen and evaluated and examined thoroughly on the day of discharge with no new complaints. Patient verbalized understanding and agreed with plan of care, to follow up as an outpatient with the primary care physician in one week and General Surgery in two weeks' time to monitor the stump on his right BKA. MEDICATIONS: See med reconciliation form including Cipro 500 mg p.o. b.i.d. times two weeks as per ID recommendations as well as Tylenol No. 3. DISPOSITION: To fdc facility. CONDITION: Stable. DIET: Heart-healthy. In the event of any worsening symptoms, the patient advised to come back to the ED for further evaluation. Discharge summary took greater than 35 minutes. ERENDIRA NIEVES MD Job#: [id number] EV
[2018-06-08] MEDS ORDERED: ALFUZOSIN 10MG PO SCH (09:00)
== END 2018-05-24 12:24 | DRG 854 ==
LOC: ER 16:12 → ERHOLD 23:36 → MED/SURG2 05-11 16:44
PROVIDERS: ADMIT Internal Medicine; ATTEND Internal Medicine
PROC: 0Y6H0Z3 Detachment at Right Lower Leg, Low, Open Approach (ICD-10-PCS; principal; 2018-05-10)
PROC: 0JXN0ZZ Transfer Right Lower Leg Subcutaneous Tissue and Fascia, Open Approach (ICD-10-PCS; 2018-05-10)
PROC: B41D1ZZ Fluoroscopy of Aorta and Bilateral Lower Extremity Arteries using Low Osmolar Contrast (ICD-10-PCS; 2018-05-15)
DX: A41.9 Sepsis, unspecified organism (principal); E11.52 Type 2 diabetes mellitus with diabetic peripheral angiopathy with gangrene; E87.1 Hypo-osmolality and hyponatremia; T81.30XA Disruption of wound, unspecified, initial encounter; M86.9 Osteomyelitis, unspecified; I73.9 Peripheral vascular disease, unspecified; R06.09 Other forms of dyspnea; I10 Essential (primary) hypertension; E11.65 Type 2 diabetes mellitus with hyperglycemia; R06.03 Acute respiratory distress; R53.81 Other malaise; E11.69 Type 2 diabetes mellitus with other specified complication; Z89.511 Acquired absence of right leg below knee; B96.4 Proteus (mirabilis) (morganii) as the cause of diseases classified elsewhere
CPT/HCPCS: 36415; 71045; 75710; 80048; 80053; 80202; 82948; 83605; 85025; 85610; 85651; 85730; 86140; 87040; 87071; 87186; 87205; 88307; 88311; 93005; 93880; 93925; 97139; 99284; J0360; J0690; J0692; J1100; J1650; J1885; J1940; J2001; J2175; J2250; J2405; J2543; J3370; J7030; J7070; J7799; Q9967